=== PATIENT | male | born 1950 | race Caucasian/White ===

== ENCOUNTER 2022-06-17 14:50 | Inpatient (IN) | payer MEDICARE, BC ==
[~2022-06-17] VITALS: Ht 167.6 cm; Wt 54.0 kg
--- NOTE | 2022-06-17 14:55 | NUR ---
CASSY SÁNCHEZ FROM SNF FOR MEDICAL/PSYCH CLEARANCE, FOR NOTED AGRESSION TO STAFF. PLACED ON BED, AWAKE-ALERT, SCREAMING-AGITATED, BREATHING EVEN AND UNLABORED SATURATING AT 96%RA
[2022-06-17] MEDS ORDERED: OLANZAPINE 10 MG VIAL IM ONE ×4 (15:00→21:00)
--- NOTE | 2022-06-17 16:10 | NUR ---
BLOOD DRAWN AND URINE SAMPLE SENT TO LAB
[2022-06-17] MEDS ORDERED: GUAN1TAB PO ×2 (16:15)
[2022-06-17] MEDS ORDERED: TAMS-12 PO (16:15)
[2022-06-17] MEDS ORDERED: LEVE500T9 PO (16:15)
[2022-06-17] MEDS ORDERED: DIVA-78 PO (16:15)
[2022-06-17] MEDS ORDERED: QUET25TA PO ×2 (16:15)
[2022-06-17] MEDS ORDERED: CLON0.5T4 PO (16:15)
[2022-06-17] MEDS ORDERED: INSU100V11 SQ (16:15)
[2022-06-17] MEDS ORDERED: FOLI0.4T6 PO (16:15)
[2022-06-17] MEDS ORDERED: THIA100T70 PO (16:15)
[2022-06-17] MEDS ORDERED: METF-441 PO (16:15)
[2022-06-17] MEDS ORDERED: FINA5TAB11 PO (16:15)
[2022-06-17] MEDS ORDERED: MELA5TAB PO (16:15)
[2022-06-17] MEDS ORDERED: TYL2T PO (16:15)
[2022-06-17] MEDS ORDERED: MULT-447 PO (16:15)
[2022-06-17] MEDS ORDERED: GLUC1KIT IM (16:15)
[2022-06-17] MEDS ORDERED: ACET-868 PO (16:15)
[2022-06-17] MEDS ORDERED: CALC1TAB30 PO (16:15)
[2022-06-17] MEDS ORDERED: INSU100V7 SQ (16:15)
[2022-06-17 16:25] LABS: BASOPHILS % (AUTO) 0.5 % (0.0-2.0); EOSINOPHILS % (AUTO) 8.2 % (0.0-6.0); HEMATOCRIT 37 % (39-51); HEMOGLOBIN 12.3 g/dL (13.5-17.5); LYMPHOCYTES # (AUTO) 1.7 K/uL (0.8-4.8); LYMPHOCYTES % (AUTO) 22.1 % (20.0-44.0); MEAN CORPUSCULAR HGB CONC 33 g/dl (31.0-36.0); MEAN CORPUSCULAR VOLUME 99 fL (80-96); MONOCYTES # (AUTO) 0.7 K/uL (0.1-1.30); MONOCYTES % (AUTO) 9.5 % (2.0-12.0); NEUTROPHILS # (AUTO) 4.6 K/uL (1.8-8.9); NEUTROPHILS % (AUTO) 59.7 % (43.0-81.0); PLATELET COUNT (AUTO) 371 K/uL (150-450); RED BLOOD CELL COUNT(AUTO) 3.77 MIL/uL (4.5-6.0); WHITE BLOOD COUNT (AUTO) 7.7 K/uL (4.3-11.0)
--- NOTE | 2022-06-17 16:26 | NUR ---
SWAB FOR COVID19 SENT TO LAB
[2022-06-17 16:42] LABS: ALANINE AMINOTRANSFERASE 14 U/L (12-78); ALBUMIN 3.2 g/dL (3.4-5.0); ALCOHOL, BLOOD < 3 mg/dL (0-0); ALKALINE PHOSPHATASE 69 U/L (46-116); ASPARTATE AMINOTRANSFERASE 13 U/L (15-37); BILIRUBIN,DIRECT 0.1 mg/dL (0.0-0.2); BILIRUBIN,TOTAL 0.3 mg/dL (0.2-1.0); CALCIUM, SERUM 9.3 mg/dL (8.5-10.1); CARBON DIOXIDE 27 mmol/L (21-32); CHLORIDE 103 mmol/L (98-107); CREATININE 1.4 mg/dL (0.6-1.3); GLUCOSE 275 mg/dL (74-106); POTASSIUM 4.1 mmol/L (3.5-5.1); SODIUM SERUM 141 mmol/L (136-145); TOTAL PROTEIN, SERUM 7.1 g/dL (6.4-8.2); UREA NITROGEN, BLOOD 19 mg/dL (7-18)
[2022-06-17 16:59] LABS: ACETAMINOPHEN < 2 ug/ml (10-30)
--- NOTE | 2022-06-17 17:55 | NUR ---
URINE SAMPLE SENT TO LAB
[2022-06-17] MEDS ORDERED: LEVOFLOXACIN 750 MG /D5W 150ML 150 ML IV ONE ×2 (18:30→19:12)
--- NOTE | 2022-06-17 18:50 | NUR ---
ROOM 110.
[2022-06-17] MEDS ORDERED: DEXTROSE 50%-WATER 50 ML DISP.SYRIN IV PRN (19:30)
[2022-06-17] MEDS ORDERED: ACETAMINOPHEN 325 MG TABLET PO PRN (19:30)
[2022-06-17] MEDS ORDERED: ONDANSETRON HCL/PF 4 MG/2 ML VIAL IVP PRN (19:30)
[2022-06-17] MEDS ORDERED: MORPHINE SULFATE INJ 2 MG/ML DISP.SYRIN IV PRN (19:30)
[2022-06-17] MEDS ORDERED: IV NS 0.9% 1,000 ML BAG IV ONE (19:30)
[2022-06-17 20:03] LABS: BILIRUBIN,URINE NEGATIVE (NEGATIVE); COLOR,URINE YELLOW (YELLOW); LEUKOCYTE ESTERASE ,URINE SMALL (NEGATIVE); NITRITE, URINE NEGATIVE (NEGATIVE); PH,URINE 6.5 (5.0-8.0); PROTEIN,URINE 30 mg/dl (NEGATIVE); UGLUCOSE 100 MG/DL mg/dL (NEGATIVE); UROBILINOGEN,URINE 0.2 EU/dL (0.2)
--- NOTE | 2022-06-17 20:15 | NUR ---
REPORT GIVEN TO JENNIFER JACOBO ROOM 328-2 FOR ANDREW
[2022-06-17 20:46] LABS: WBC,URINE 21-50 /HPF (0-3)
[2022-06-17 20:47] LABS: BACTERIA,URINE 2+ /HPF (None Seen); SQUAMOUS EPITHELIAL CELL,UR 0-2 /HPF (None Seen)
[2022-06-17 21:00] VITALS: BP 113/70
[2022-06-17 21:51] LABS: CREATINE KINASE, TOTAL 159 U/L (39-308)
[2022-06-17 22:00] VITALS: BP 113/70
[2022-06-17] MEDS ORDERED: Medication Not On Formulary EA (Melatonin 5 MG) PO SCH (22:00)
--- NOTE | 2022-06-17 22:00 | NUR ---
FROM THE ER FROM SNF ADMITTED FOR MEDICAL CLEARANCE TO BE ADMITTED TO [facility] UNIT DX UTI 1 DOSE LEVAQUIN HAS BEEN GIVEN IN THE ER PATIENT IS AGITATED / YELLING /HITTING /GETTING OUT OF THE BED NO COMPREHENTION WHEN HE IS SPOKEN TO SPOKE TO MD ROGERS AND MADE HIM AWARE OF THE BEHAVIOR OF THE PATIENT HE ORDERED 1ST TRY BENADRYL 50 MG IV Q 8 HOURS PRN ...IF INEFFECTIVE TRY 2ND TRY HALDOL 5M IV Q6H PRN ...IF INEFFECTIVE TRY 3RD TRY ATIVAN 1 MG IV Q 6HOURS ...ONLY USE LAST FOR AGITATION PATIENT WAS ABLE TO GET OOB X3 BEDALARM SOUNDING EACH TIME PUTTING HIM BACK TO BED HE STARTED HITTING AND YELLING WATER GIVEN ASPIRATION PRECAUTION SWALLOW WELL HOB ELEVATED 'OUCH YOUR HURTING ME" YELLS THIS OUT WHEN NOT EVEN BEING TOUCHED!
[2022-06-17 22:03] LABS: SERUM AMMONIA 36 umol/L (11-32)
[2022-06-17] MEDS: IV NS 0.9% 1,000 ML IV SCH (22:21)
[2022-06-17] MEDS: INSULIN GLARGINE, 100 UNIT/ML CARTRIDGE SQ SCH (22:25)
[2022-06-17] MEDS: HEPARIN SODIUM, PORCINE 5000 UNITS/1 ML VIAL SQ SCH (22:26)
[2022-06-17] MEDS: FINASTERIDE (5 MG) 5 MG TABLET PO SCH (22:29)
[2022-06-17] MEDS: TAMSULOSIN 0.4 MG CAP.SR.24H PO SCH (22:29)
[2022-06-17] MEDS: DIVALPROEX SODIUM 500 MG TABLET.DR PO SCH (22:30)
[2022-06-17] MEDS: QUETIAPINE FUMARATE 25 MG TABLET PO SCH (22:30)
[2022-06-17] MEDS: BLOOD SUGAR DIAGNOSTIC 1 EACH STRIP VI SCH (22:31)
[2022-06-17] MEDS ORDERED: LORAZEPAM INJ 2 MG/ML VIAL IV PRN (23:30)
[2022-06-17] MEDS: diphenhydrAMINE HCL 50 MG/ML VIAL IV PRN (23:49)
--- NOTE | 2022-06-18 04:09 | NUR ---
CLOSING NOTES: ADMITTED FROM THE ER 06/17 @ 22;15 ALERT TO SELF / UTI / AMS / AGITATED /YELLING " YOUR HURTING ME" SAYS THIS EVEN IF NO ONE IS TOUCHING HIM HE WAS RESTLESS AND ACTUALLY CLIMBING OUT OF THE BED X3 WHEN I WAS ABLE TO GET A SITTER AND SPOKE TO MD FATIMA AND HE SAID TO 1ST TRY BENADRLY 50 MG IV IF NOT EFFECTIVE 2ND TRY [id number] IV IF NOT EFFECTIVE 3RD TRY ATIVAN 1 MG IV 9GIVE ONLY IF THE 1ST AND 2ND AREN'T EFFECTIVE TO LOWER HIS AGITATION AND CALM HIM DOWN SITTER AT THE BEDSIDE SWALLOWS W/O PROBLEMS BUT WILL NEED TO OFFER FLUIDS AND ASSIST HIM HE HAS A HISTORY OF BPH AND ARRIVED WITH INDWELLING JACOBO FROM THE SNF CTR DX. UTI AND AMS. HE IS EASILY AGITATED / SPEAKING MEAN TO THE NURSES /WITH OPEN HAND HIT THE NURSE / ABLE TO MOVE ABOUT IN THE BED INDEPENDENTLY SKIN INTACT
[2022-06-18] MEDS: BLOOD SUGAR DIAGNOSTIC 1 EACH STRIP VI SCH ×4 (06:10→21:10)
[2022-06-18 06:33] LABS: BASOPHILS % (AUTO) 0.4 % (0.0-2.0); EOSINOPHILS % (AUTO) 10.3 % (0.0-6.0); HEMATOCRIT 35 % (39-51); HEMOGLOBIN 11.6 g/dL (13.5-17.5); LYMPHOCYTES # (AUTO) 1.9 K/uL (0.8-4.8); LYMPHOCYTES % (AUTO) 25.6 % (20.0-44.0); MEAN CORPUSCULAR HGB CONC 34 g/dl (31.0-36.0); MEAN CORPUSCULAR VOLUME 99 fL (80-96); MONOCYTES # (AUTO) 0.7 K/uL (0.1-1.30); MONOCYTES % (AUTO) 9.4 % (2.0-12.0); NEUTROPHILS # (AUTO) 4.1 K/uL (1.8-8.9); NEUTROPHILS % (AUTO) 54.3 % (43.0-81.0); PLATELET COUNT (AUTO) 339 K/uL (150-450); RED BLOOD CELL COUNT(AUTO) 3.49 MIL/uL (4.5-6.0); WHITE BLOOD COUNT (AUTO) 7.5 K/uL (4.3-11.0)
[2022-06-18 06:55] LABS: ALANINE AMINOTRANSFERASE 10 U/L (12-78); ALBUMIN 2.9 g/dL (3.4-5.0); ALKALINE PHOSPHATASE 57 U/L (46-116); ASPARTATE AMINOTRANSFERASE 13 U/L (15-37); BILIRUBIN,TOTAL 0.5 mg/dL (0.2-1.0); CALCIUM, SERUM 8.4 mg/dL (8.5-10.1); CARBON DIOXIDE 28 mmol/L (21-32); CHLORIDE 110 mmol/L (98-107); GLUCOSE 105 mg/dL (74-106); MAGNESIUM 1.9 mg/dL (1.8-2.4); POTASSIUM 3.8 mmol/L (3.5-5.1); SODIUM SERUM 146 mmol/L (136-145); TOTAL PROTEIN, SERUM 6.3 g/dL (6.4-8.2); UREA NITROGEN, BLOOD 17 mg/dL (7-18)
--- NOTE | 2022-06-18 07:45 | NUR ---
DONNELL LOPEZ NOTES RECEIVED PATIENT IN BED CALM, WITH A SITTER, PATIENT IS AOX1-2, CONFUSED, VERBAL BUT PHRASES ARE INCOHERENT. PATIENT IS ON ROOM AIR SATURATING AT 99%, NO S/SX OF RESPIRATORY DISTRESS NOTED, PATIENT DENIES PAIN, PATIENT CAME WITH A JACOBO FROM HIS SNF, INTACT, PATENT, DRAINING PALE YELLOW URINE VIA GRAVITY. PATIENT HAS RAC G#20 DRAINING NS AT 70 ML/HR AND LH G#20 SL, PATENT, FLUSHING WELL. SAFETY PRECAUTIONS IN PLACE: BED AT LOWEST POSITION, BED ALARMS ON, SIDE RAILS UP X3, TRAY TABLE AND CALL LIGHT WITHIN REACH. WILL CONTINUE TO MONITOR DURING MY SHIFT. Addendum: 06/18/22 at 2017 by LIS JOYCE RN DONNELL MS OPENING NOTES
[2022-06-18 08:00] VITALS: BP 103/62
[2022-06-18] MEDS ORDERED: clonazePAM 0.5 MG TABLET PO SCH (09:00)
[2022-06-18] MEDS ORDERED: GUANFACINE HCL 1 MG TABLET PO SCH ×2 (09:00→18:00)
--- NOTE | 2022-06-18 09:40 | NUR ---
RN NOTES PATIENT WAS SEEN OFF HIS BED WITHOUT HIS SITTER ON THE FLOOR. NO INJURIES NOTED AND NO COMPLAINS NOTED. CHARGE NURSE DAVIN ASKED FOR ACUTE MEDICAL RESTRAINTS BE ORDERED FROM [facility] FOR SAFETY. PATIENT ALSO MANAGED TO ACCIDENTALLY REMOVE HIS RAC IV IN THE PROCESS. SOFT MEDICAL RESTRAINTS APPLIED ON BOTH WRISTS, WILL CONTINUE TO MONITOR COMFORT AND PROVIDE SAFETY.
[2022-06-18] MEDS: CEFTRIAXONE 1 G in IV D5W 50 ML IV SCH (10:25)
[2022-06-18] MEDS: MULTIVIT W/MINERALS 1 TAB TABLET PO SCH (10:29)
[2022-06-18] MEDS: DOCUSATE SODIUM LIQ 100 MG/10 ML UDC PO SCH ×2 (10:29→17:16)
[2022-06-18] MEDS: DIVALPROEX SODIUM 500 MG TABLET.DR PO SCH ×3 (10:29→20:59)
[2022-06-18] MEDS: CALCIUM CARB 250MG /VITAMIN D 1 UDTAB PO SCH (10:29)
[2022-06-18] MEDS: THIAMINE HCL 100 MG TABLET PO SCH (10:29)
[2022-06-18] MEDS: QUETIAPINE FUMARATE 25 MG TABLET PO SCH (10:30)
[2022-06-18] MEDS: POLYETHYLENE GLYCOL 3350 17 GM POWD.PACK PO SCH (10:30)
[2022-06-18] MEDS: FOLIC ACID 1 MG TABLET PO SCH (10:30)
[2022-06-18] MEDS: LEVETIRACETAM (250 MG) 250 MG TABLET PO SCH (10:30)
[2022-06-18] MEDS: HEPARIN SODIUM, PORCINE 5000 UNITS/1 ML VIAL SQ SCH ×2 (10:33→20:59)
--- NOTE | 2022-06-18 11:31 | NUR ---
RN NOTES PATIENT WAS ABLE TO SUCCESSFULLY REMOVE HIS RIGHT ARM RESTRAINT AND PULLED HIS LEFT ARM IV LINE. BLEEDING HAS BEEN STOPPED WITH PRESSURE DRESSING. WILL REINSERT A NEW ONE. PATIENT IS AGITATED. WILL GIVE BENADRYL ORDERED.
[2022-06-18] MEDS: diphenhydrAMINE HCL 50 MG/ML VIAL IV PRN ×2 (11:38→21:00)
[2022-06-18] MEDS: INSULIN REGULAR, HUMAN 100 UNIT/ML 3 ML VIAL SQ PRN (11:44)
[2022-06-18] MEDS: IV NS 0.9% 1,000 ML IV SCH (12:44)
[2022-06-18] MEDS: HALOPERIDOL LACTATE INJ 5 MG/ML VIAL IV PRN (12:46)
[2022-06-18] MEDS ORDERED: OLANZAPINE 5 MG TABLET PO PRN (14:00)
[2022-06-18 16:00] VITALS: BP 128/72
[2022-06-18] MEDS: OLANZAPINE 5 MG TABLET PO SCH (17:16)
--- NOTE | 2022-06-18 17:30 | NUR ---
RN NOTES DVT PUMP IN PLACE
--- NOTE | 2022-06-18 17:50 | NUR ---
RN NOTES Guanfacine Hcl 1 mg IS NOT AVAILABLE IN THE PHARMACY FOR HTN. INFORMED PHARMACY THAT PT IS FROM A SNF. CIGARETTE SELLER MENTIONED SHE WILL CONTACT YOVANY WEBSTER TO DC.
--- NOTE | 2022-06-18 18:45 | NUR ---
RN MS CLOSING NOTES PATIENT IN BED CALM, PATIENT IS AOX1-2, CONFUSED, VERBAL BUT PHRASES ARE INCOHERENT. PATIENT IS ON ROOM AIR SATURATING AT 99%, NO S/SX OF RESPIRATORY DISTRESS NOTED, PATIENT DENIES PAIN, PATIENT STILL WITH JACOBO CATHETER WHICH DRAINED ABOUT 1200 ML OF URINE. IV ACCESS IS NOW ON RFA G#20 DRAINING NS AT 70 ML/HR, PATENT, FLUSHING WELL. PATIENT STILL HAS SOFT MEDICAL RESTRAINTS ON BOTH WRISTS BECAUSE HE IS TRYING TO PULL HIS IVS OUT. CHECKED FOR SAFETY, PERFUSION AND COMFORT EVERY 2 HOURS. NO INJURIES NOTED. SAFETY PRECAUTIONS MAINTAINED: BED AT LOWEST POSITION, BED ALARMS ON, SIDE RAILS UP X3, TRAY TABLE AND CALL LIGHT WITHIN REACH. WILL ENDORSE TO THE DIRECTOR ELECTRICAL ENGINEERING NURSE.
--- NOTE | 2022-06-18 20:16 | NUR ---
OPENING NOTES: ALERT AND ORIENTATED X1 TO SELF . HE TALKS INCOHERENTLY. [facility] CONTACT. FED HIM HIS DINNES ASOIRATION PRECAUTION. DINNER TAKEN 100% JACOBO DRAINAGE CLEAR YELLOW RIGHT ARM IV SITE INTACT
--- NOTE | 2022-06-18 20:17 | NUR ---
DONNELL MS OPENING NOTES Addendum: 06/18/22 at 2018 by LIS JOYCE RN DISREGARD
[2022-06-18] MEDS: INSULIN GLARGINE, 100 UNIT/ML CARTRIDGE SQ SCH (21:16)
[2022-06-18] MEDS: *INSULIN REGULAR(HUMULIN R)HUM 100 UNIT/ML VIAL SQ PRN (21:18)
[2022-06-18] MEDS: TAMSULOSIN 0.4 MG CAP.SR.24H PO SCH (21:27)
[2022-06-18] MEDS: FINASTERIDE (5 MG) 5 MG TABLET PO SCH (21:28)
[2022-06-19] MEDS: diphenhydrAMINE HCL 50 MG/ML VIAL IV PRN (05:07)
--- NOTE | 2022-06-19 05:12 | NUR ---
CLOSING NOTES ALERORIENTATED X0 ENJOYS WHEN NURSE IN THE ROOM WILL TALK INCOHERENTLY BUT ENJOY THE COMPANY WHEN NO ONE IS IN THE ROOM HE IS RESTLESS IN THE BED AND TALKING CONTINIOUS AND REMOVING HIS UNDER PSAD AND COVERS AND THROWING THEM ON TO THE FLOOR \AMBIKA WRIST RESTRAINTS ON REMOVED WHEN IM IN THE ROOM HE MAKE FREQ ATTEMPT TO GET OOB AND WHEN PLACED BACK DOWN INTO THE BED HITS THE NURSE HE IS ABLE TO GET HIMSELF OUT OF THE RESTRAINT AND LEGS OVER THE BED FREQ BED CHECKS ARE BEING MADE TO KEEP HIM SAFE FROM FALLING BENADRYL 50 MG GIVEN AT 2100 AND 0500 FOR RESTLESSNESS AND AGITATION WILL YELL OUT AT TIMES
[2022-06-19] MEDS: BLOOD SUGAR DIAGNOSTIC 1 EACH STRIP VI SCH ×4 (05:25→21:34)
[2022-06-19 06:58] LABS: CALCIUM, SERUM 9.3 mg/dL (8.5-10.1); CARBON DIOXIDE 28 mmol/L (21-32); CHLORIDE 105 mmol/L (98-107); GLUCOSE 73 mg/dL (74-106); POTASSIUM 3.4 mmol/L (3.5-5.1); SODIUM SERUM 143 mmol/L (136-145); UREA NITROGEN, BLOOD 13 mg/dL (7-18)
--- NOTE | 2022-06-19 07:09 | NUR ---
MS RN OPENING NOTES RECEIVED PATIENT AWAKE IN BED, RESTING ON ROOM AIR, NO S/S OF RESPIRATORY DISTRESS. A/Ox1, RESPONDS TO VERBAL AND TACTILE STIMULI. IV ACCESS R UPPER ARM #20 SL. INTACT AND PATENT, NO S/S OF INFILTRATION. BILATERAL SOFT WRIST RESTRAINTS IN PLACE, SKIN AND CIRCULATION INTACT. FC IN PLACE DRAINING YELLOW URINE. SAFETY MEASURES IN PLACE: BED LOCKED AND IN LOWEST POSITION, SIDE RAILS UP x3, BED ALARM ON, HOB ELEVATED, AND CALL LIGHT WITHIN REACH. WILL CONTINUE TO MONITOR.
[2022-06-19 07:10] LABS: BASOPHILS % (AUTO) 0.3 % (0.0-2.0); EOSINOPHILS % (AUTO) 7.5 % (0.0-6.0); HEMATOCRIT 37 % (39-51); HEMOGLOBIN 12.2 g/dL (13.5-17.5); LYMPHOCYTES # (AUTO) 1.6 K/uL (0.8-4.8); LYMPHOCYTES % (AUTO) 20.9 % (20.0-44.0); MEAN CORPUSCULAR HGB CONC 33 g/dl (31.0-36.0); MEAN CORPUSCULAR VOLUME 99 fL (80-96); MONOCYTES # (AUTO) 0.7 K/uL (0.1-1.30); MONOCYTES % (AUTO) 9.3 % (2.0-12.0); NEUTROPHILS # (AUTO) 4.7 K/uL (1.8-8.9); PLATELET COUNT (AUTO) 393 K/uL (150-450); RED BLOOD CELL COUNT(AUTO) 3.71 MIL/uL (4.5-6.0); WHITE BLOOD COUNT (AUTO) 7.6 K/uL (4.3-11.0)
[2022-06-19 08:00] VITALS: BP 129/72
[2022-06-19] MEDS: DIVALPROEX SODIUM 500 MG TABLET.DR PO SCH ×3 (08:06→21:28)
[2022-06-19] MEDS: clonazePAM 0.5 MG TABLET PO SCH ×2 (08:39→16:44)
[2022-06-19] MEDS: POLYETHYLENE GLYCOL 3350 17 GM POWD.PACK PO SCH (08:42)
[2022-06-19] MEDS: OLANZAPINE 5 MG TABLET PO SCH ×2 (08:42→16:44)
[2022-06-19] MEDS: DOCUSATE SODIUM LIQ 100 MG/10 ML UDC PO SCH ×2 (08:42→16:44)
[2022-06-19] MEDS: CALCIUM CARB 250MG /VITAMIN D 1 UDTAB PO SCH (08:42)
[2022-06-19] MEDS: MULTIVIT W/MINERALS 1 TAB TABLET PO SCH (08:42)
[2022-06-19] MEDS: FOLIC ACID 1 MG TABLET PO SCH (08:43)
[2022-06-19] MEDS: THIAMINE HCL 100 MG TABLET PO SCH (08:43)
[2022-06-19] MEDS: CEFTRIAXONE 1 G in IV D5W 50 ML IV SCH (08:43)
[2022-06-19] MEDS: LEVETIRACETAM (250 MG) 250 MG TABLET PO SCH (08:43)
[2022-06-19] MEDS: HEPARIN SODIUM, PORCINE 5000 UNITS/1 ML VIAL SQ SCH ×2 (08:45→21:29)
[2022-06-19] MEDS: INSULIN REGULAR, HUMAN 100 UNIT/ML 3 ML VIAL SQ PRN (11:51)
[2022-06-19] MEDS ORDERED: POTASSIUM CHLORIDE 20 MEQ TAB.PRT.SR PO SCH (13:00)
--- NOTE | 2022-06-19 17:10 | NUR ---
RN NOTES RECEIVED CALL FROM LAB, PATIENT HAS POSITIVE FOR MRSA STAPH AUREUS.
--- NOTE | 2022-06-19 18:40 | NUR ---
MS RN CLOSING NOTES PATIENT AWAKE IN BED, RESTING STABLE ON ROOM AIR, NO S/S OF RESPIRATORY DISTRESS. A/Ox1, RESPONDS TO VERBAL AND TACTILE STIMULI. IV ACCESS R UPPER ARM #20 SL. INTACT AND PATENT, NO S/S OF INFILTRATION. BILATERAL SOFT WRIST RESTRAINTS IN PLACE, SKIN AND CIRCULATION INTACT. FC IN PLACE DRAINING 1900 CC DURING SHIFT. ALL PRESCRIBED MEDICATION ADMINISTERED. SAFETY MEASURES MAINTAINED: BED LOCKED AND IN LOWEST POSITION, SIDE RAILS UP x3, BED ALARM ON, HOB ELEVATED, AND CALL LIGHT WITHIN REACH. WILL ENDORSE TO NEXT SHIFT ANY ANDREW.
--- NOTE | 2022-06-19 19:55 | NUR ---
MS RN NOTES RECEIVED ON BED CONFUSED,ON BILATERAL SOFT RESTRAINT,FALL RISK,BED ON LOWEST POSITION AND LOCKED,DVT PUMP IN USED FOR DVT PROPHYLAXIS,WILL CONTINUE TO MONITOR STATUS.
[2022-06-19 20:00] VITALS: BP_SYST 123; BP_DIAS 72; BP_DIAS 74
[2022-06-19] MEDS: MUPIROCIN OINT 2% 22 GM TUBE NS SCH (21:27)
[2022-06-19] MEDS: NITROFURANTOIN/MONOHYDRATE MACROCRYSTALS 100 MG CAPSULE PO SCH (21:28)
[2022-06-19] MEDS: FINASTERIDE (5 MG) 5 MG TABLET PO SCH (21:33)
[2022-06-19] MEDS: TAMSULOSIN 0.4 MG CAP.SR.24H PO SCH (21:33)
[2022-06-19] MEDS: INSULIN GLARGINE, 100 UNIT/ML CARTRIDGE SQ SCH (21:56)
[2022-06-19] MEDS: *INSULIN REGULAR(HUMULIN R)HUM 100 UNIT/ML VIAL SQ PRN (21:59)
[2022-06-19] MEDS ORDERED: OLANZAPINE 5 MG TABLET PO SCH (22:00)
--- NOTE | 2022-06-19 22:00 | NUR ---
MS RN NOTES ACCU-CHECK BLOOD SUGAR CHECK 259,COVERED WITH HUMULIN R 6 UNITS,ALONG WITH LANTUS 15 UNITS SCHEDULED,SNACKS GIVEN.
[2022-06-20] MEDS: diphenhydrAMINE HCL 50 MG/ML VIAL IV PRN (01:40)
--- NOTE | 2022-06-20 01:40 | NUR ---
MS RN NOTES AWAKE,VERY RESTLESS ON BED,TRYING TO PULL OUT RESTRAINTS.BENADRYL 50MG IV GIVEN ORDERED,FIRST TO BE GIVEN WHEN PATIENT IS AGITATED
[2022-06-20] MEDS: BLOOD SUGAR DIAGNOSTIC 1 EACH STRIP VI SCH ×4 (05:21→22:21)
--- NOTE | 2022-06-20 05:30 | NUR ---
MS RN NOTES ACCU-CHECK BLOOD SUGAR CHECK 87,NO INSULIN COVERAGE,GIVEN JELLO BUT HE SPIT IT.
[2022-06-20] MEDS: HALOPERIDOL LACTATE INJ 5 MG/ML VIAL IV PRN (06:35)
--- NOTE | 2022-06-20 06:35 | NUR ---
MS RN NOTES VERY RESTLESS,AGITATED,TRIED TO SPIT WITH STAFF,TRYING TO GET OUT OF BED.WILL MEDICATE WITH HALDOL 5MG IV SECOND CHOICE TO CALM HIM DOWN.PUT ON TELE WITH SR -96 BEFORE ADMINISTERING MEDICATION.
--- NOTE | 2022-06-20 06:35 | NUR ---
MS RN NOTES ADMINISTERED HALDOL 5MG IVP,GIVEN SLOWLY OVER ONE MINUTE.TELE READING POST ADMINISTRATION WAS ST 113.
--- NOTE | 2022-06-20 06:51 | NUR ---
MS RN NOTES ON BED STILL SCREAMING ON AND OFF,BILATERAL SOFT RESTRAINTS IN USED ON BOTH WRIST WITH ORDER,JACOBO CATH IN PLACE DRAINS 900ML OUTPUT.FALL RISK,BED ON LOWEST POSITION AND LOCKED,BED ALARM.WILL ENDORSE TO DAY NURSE ASSIGNED FOR CLOSE MONITORING.
[2022-06-20 07:02] LABS: CALCIUM, SERUM 9.1 mg/dL (8.5-10.1); POTASSIUM 3.4 mmol/L (3.5-5.1)
--- NOTE | 2022-06-20 07:35 | NUR ---
ms rn received on bed,sleeping, not in any form of distress, bilateral soft wrist restaint on for safety, haldol was given at 5 am per warehouse worker 2nd shift rn, very confused and combative no distress noted, will monitor patient for comfort.
[2022-06-20 08:00] VITALS: BP 130/81
[2022-06-20] MEDS: LEVETIRACETAM (250 MG) 250 MG TABLET PO SCH (08:54)
[2022-06-20] MEDS: OLANZAPINE 5 MG TABLET PO SCH (08:54)
[2022-06-20] MEDS: DOCUSATE SODIUM LIQ 100 MG/10 ML UDC PO SCH ×2 (08:55→18:09)
[2022-06-20] MEDS: POLYETHYLENE GLYCOL 3350 17 GM POWD.PACK PO SCH (08:55)
[2022-06-20] MEDS: NITROFURANTOIN/MONOHYDRATE MACROCRYSTALS 100 MG CAPSULE PO SCH ×2 (08:55→21:58)
[2022-06-20] MEDS: FOLIC ACID 1 MG TABLET PO SCH (08:55)
[2022-06-20] MEDS: MULTIVIT W/MINERALS 1 TAB TABLET PO SCH (08:55)
[2022-06-20] MEDS: CALCIUM CARB 250MG /VITAMIN D 1 UDTAB PO SCH (08:55)
[2022-06-20] MEDS: DIVALPROEX SODIUM 500 MG TABLET.DR PO SCH ×3 (08:55→21:58)
[2022-06-20] MEDS: clonazePAM 0.5 MG TABLET PO SCH (08:55)
[2022-06-20] MEDS: THIAMINE HCL 100 MG TABLET PO SCH (08:55)
[2022-06-20] MEDS: HEPARIN SODIUM, PORCINE 5000 UNITS/1 ML VIAL SQ SCH ×2 (08:56→22:00)
--- NOTE | 2022-06-20 09:00 | NUR ---
ms rn was seen by dr. katz w/ orders made and carried out.
[2022-06-20] MEDS: MUPIROCIN OINT 2% 22 GM TUBE NS SCH ×2 (09:15→22:02)
[2022-06-20] MEDS ORDERED: POLY17PO29 PO (11:51)
[2022-06-20] MEDS ORDERED: MUPI22OI7 NS (11:51)
[2022-06-20] MEDS ORDERED: DIVA500T2 PO (11:51)
[2022-06-20] MEDS ORDERED: DOCU50LI PO (11:51)
[2022-06-20] MEDS ORDERED: Olanzapine PO (11:51)
[2022-06-20] MEDS ORDERED: NITR100C15 PO (11:51)
[2022-06-20] MEDS ORDERED: POTASSIUM CHLORIDE 20 MEQ TAB.PRT.SR PO ONE (13:00)
[2022-06-20] MEDS: INSULIN REGULAR, HUMAN 100 UNIT/ML 3 ML VIAL SQ PRN ×3 (14:30→22:11)
[2022-06-20 16:00] VITALS: BP 122/98
[2022-06-20] MEDS ORDERED: OLANZAPINE 5 MG TABLET PO SCH ×2 (17:00→22:00)
--- NOTE | 2022-06-20 18:40 | NUR ---
ms rn on bed, will be discharge to [facility],all needs attended.
--- NOTE | 2022-06-20 19:43 | NUR ---
RN OPENING NOTES; RECEIVED PT IN BED SLEEPING BUT EASY TO AROUSED,AOX1 CONFUSED,OSMAR WELL ON RM AIR NO SIGN SOB/DISTRESS NOTED,IV ACCESS ON DEE DEE 20G SL,PATENT AND INTACT,SAFETY MEASURE INPLACE,CALL LIGHT WITHIN REACH,PT WAITING FOR DISCHARGE GOING TO [facility],WILL CONTINUE TO MONITOR.
[2022-06-20] MEDS: FINASTERIDE (5 MG) 5 MG TABLET PO SCH (21:58)
[2022-06-20] MEDS: TAMSULOSIN 0.4 MG CAP.SR.24H PO SCH (21:59)
[2022-06-20] MEDS: INSULIN GLARGINE, 100 UNIT/ML CARTRIDGE SQ SCH (22:12)
[2022-06-20 22:33] VITALS: BP 93/72
--- NOTE | 2022-06-20 23:15 | NUR ---
RN NOTES; PATIENT DISCHARGED GOING TO [facility],PT WAS STABLE, NO SOB/DISTRESS NOTED,IV LINE AND F/C WAS REMOVE NO BLEEDING NOTED, GIVE REPORT TO HANK CHARGE NURSE.
== END 2022-06-20 23:23 | DRG 682 ==
LOC: ER 15:14 → MED 20:00
PROVIDERS: ADMIT Internal Medicine; ATTEND Nurse Practitioner Acute Care
DX: N17.0 Acute kidney failure with tubular necrosis (principal); G93.41 Metabolic encephalopathy; N39.0 Urinary tract infection, site not specified; E44.0 Moderate protein-calorie malnutrition; E87.2 Acidosis; E72.20 Disorder of urea cycle metabolism, unspecified; E87.0 Hyperosmolality and hypernatremia; E86.0 Dehydration; E11.9 Type 2 diabetes mellitus without complications; Z20.822 Contact with and (suspected) exposure to COVID-19; E88.09 Other disorders of plasma-protein metabolism, not elsewhere classified; F03.90 Unspecified dementia, unspecified severity, without behavioral disturbance, psychotic disturbance, mood disturbance, and anxiety; D53.9 Nutritional anemia, unspecified; N40.0 Benign prostatic hyperplasia without lower urinary tract symptoms; R62.7 Adult failure to thrive; Z88.0 Allergy status to penicillin; Z79.4 Long term (current) use of insulin; Z79.899 Other long term (current) drug therapy; Z79.84 Long term (current) use of oral hypoglycemic drugs; F29 Unspecified psychosis not due to a substance or known physiological condition; B95.2 Enterococcus as the cause of diseases classified elsewhere; F20.9 Schizophrenia, unspecified; R41.0 Disorientation, unspecified
CPT/HCPCS: 36415; 71045-TC; 80048-TC; 80053-TC; 80076-TC; 80164-TC; 81001; 82140-TC; 82550-TC; 82962-TC; 83605-TC; 83735-TC; 84100-TC; 84484-TC; 85025-TC; 85730-TC; 87040-TC; 87081-TC; 87086-TC; 87186-TC; C9803; G0378; G0480; J0696; J1200; J1630; J1644; J1815; J1956; J3490; J7030; J7040; J7060

== ENCOUNTER 2022-06-20 23:49 | Inpatient (IN) | payer MEDICARE, BC ==
[~2022-06-20] VITALS: Ht 167.6 cm; Wt 54.0 kg
[~2022-06-20 23:49] MED LIST: ACET-868 PO; CALC1TAB30 PO; CLON0.5T4 PO; DIVA-78 PO; DIVA500T2 PO; DOCU50LI PO; FINA5TAB11 PO; FOLI0.4T6 PO; GLUC1KIT IM; GUAN1TAB PO; INSU100V11 SQ; INSU100V7 SQ; LEVE500T9 PO; MELA5TAB PO; METF-441 PO; MULT-447 PO; MUPI22OI7 NS; NITR100C15 PO; Olanzapine PO; POLY17PO29 PO; QUET25TA PO; TAMS-12 PO; THIA100T70 PO; TYL2T PO
[2022-06-21] MEDS ORDERED: DEXTROSE 50%-WATER 50 ML DISP.SYRIN IV PRN (00:30)
[2022-06-21] MEDS ORDERED: MAGNESIUM HYDROXIDE 30 ML UDC PO PRN (01:00)
[2022-06-21] MEDS ORDERED: BLOOD SUGAR DIAGNOSTIC 1 EACH STRIP IN ONE (01:00)
[2022-06-21] MEDS ORDERED: MAG HYDROX/AL HYDROX/SIMETH 30 ML UDC PO PRN (01:00)
[2022-06-21 01:20] VITALS: BP 115/68
[2022-06-21] MEDS ORDERED: Z GUARD REMEDY 4 OZ OINT TP PRN (02:00)
[2022-06-21 02:19] VITALS: BP 117/70
--- NOTE | 2022-06-21 02:39 | NUR ---
RN NOTES : ADMISSION NOTES: ADMITTED THIS 72Y/O MALE PATIENT ADMIT FROM [facility] , [facility] IN [place]. ADMITTED TO 5150 HOLD DTO,GD , PER HOLD PT.INCREASED AGITATION AND STRIKING OUT AT STAFF, UPON FACE TO FACE ASSESSMENT PATIENT IS A&O X1, CONFUSED, HYPERVERBAL, WORLD SALAD, EASILY AGITATED,DISORGNIZED,RESTLESS,PARANOID,UNCOOPERTIVE,RESTLESS ,DENIES SI /HI AT THIS TIME, PT. IS POOR HISTORIAN, POOR INSIGHT ,POOR JUDGEMENT , BOTH MD AWARE AND NOTIFIED OF THE ADMISSION, BELONGINGS CONTRABAND WERE DONE , PT. REFUSED SIGNS ADMISSION CONSENT PAPER DUE TO CONFUSED, REFUSED TO CHECK BLOOD SUGAR ,ENCOURAGED X3 BUT ,ENCOURAGED PT. TO TAKE SHOWER, PT. RIGHTS DISCUSS BY SERVICE MECHANIC , PROVIDE THE PT. WITH HANDBOOK, AND MEDICATIONS GUIDE, ENVIRONMENTAL SAFETY CHECK DONE, ENCOURAGED PT. VERBALIZED ANY FEELING CONCERN TO STAFF, ORIENT TO UNIT POLICY, NO ACUTE DISTRESS NOTED,VITAL SIGNS WNL ,DENIES ANY PAIN AT THIS TIME,WILL CONTINUE TO MONITOR FOR Q15 SAFETY AND BEHAVIOR.
--- NOTE | 2022-06-21 06:00 | NUR ---
RN NOTES: AT 0600 BLADDER SCAN DONE , NOTED URINE 350 ML , DENIES ANY PAIN DISCOMFORT AT THIS TIME , WILL CONTINUITY WITH CARE.
--- NOTE | 2022-06-21 06:00 | NUR ---
RN NOTES: AT 0600 BLADDER SCAN DONE , NOTED URINE 350 ML .
--- NOTE | 2022-06-21 06:50 | NUR ---
RN NOTES: CALLED AT THIS PHONE NUMBER [phone], BUT UNABLE TO LEFT MESSAGE DUE TO NOT PERSONAL NUMBER .
[2022-06-21] MEDS: BLOOD SUGAR DIAGNOSTIC 1 EACH STRIP VI SCH ×4 (07:41→22:05)
[2022-06-21 08:00] VITALS: BP 134/78
[2022-06-21] MEDS: POLYETHYLENE GLYCOL 3350 17 GM POWD.PACK PO SCH (08:40)
[2022-06-21] MEDS: NITROFURANTOIN/MONOHYDRATE MACROCRYSTALS 100 MG CAPSULE PO SCH ×2 (08:41→21:58)
[2022-06-21] MEDS: MULTIVIT W/MINERALS 1 TAB TABLET PO SCH (08:41)
[2022-06-21] MEDS: THIAMINE HCL 100 MG TABLET PO SCH (08:41)
[2022-06-21] MEDS: LEVETIRACETAM (250 MG) 250 MG TABLET PO SCH (08:41)
[2022-06-21] MEDS: CALCIUM CARB 250MG /VITAMIN D 1 UDTAB PO SCH (08:41)
[2022-06-21] MEDS: DOCUSATE SODIUM 100 MG CAPSULE PO SCH ×2 (08:41→16:23)
[2022-06-21] MEDS: FOLIC ACID 1 MG TABLET PO SCH (08:42)
[2022-06-21] MEDS ORDERED: HEPARIN SODIUM, PORCINE 5000 UNITS/1 ML VIAL SQ SCH (09:00)
[2022-06-21] MEDS: MUPIROCIN OINT 2% 22 GM TUBE NS SCH ×2 (09:03→21:57)
[2022-06-21] MEDS: INSULIN REGULAR, HUMAN 100 UNIT/ML 3 ML VIAL SQ PRN ×4 (09:05→22:32)
--- NOTE | 2022-06-21 09:17 | NUR ---
FILIPPO Initial Discharge Plan: Pt currently resides at [facility] located at [address] [place] [id number] . FILIPPO spoke with Danii green who stated pt is welcomed back when stable. FILIPPO will work with the MD, treatment team, and pt to help coordinate appropriate discharge.
--- NOTE | 2022-06-21 09:17 | NUR ---
FILIPPO Clinical Note: Pt placed on a 5150 hold for danger to others and GD. Pt was aggressive at his facility. Pt currently resides at [facility] located at [address] [place] [id number] . FILIPPO spoke with Danii green who stated pt is welcomed back when stable.
--- NOTE | 2022-06-21 09:18 | NUR ---
Treatment Plan: Pt refused to sign treatment plan. Pt was very confused and agitated.
[2022-06-21] MEDS: LORAZEPAM 0.5 MG TABLET PO PRN ×3 (09:54→19:35)
--- NOTE | 2022-06-21 09:59 | NUR ---
RN-NOTES PATIENT IN THE DAY ROOM UP IN THE CHEN CHAIR, NOTED TALKING TO SELF,BANGING THE CHEN CHAIR TABLE AND SCREAMING. REDIRECTED AND ATIVAN 0.5MG P.O GIVEN PRN ORDER. WILL CONT. MONITORING FOR SAFETY AND BEHAVIOR.
--- NOTE | 2022-06-21 10:44 | NUR ---
RN-NOTES RECEIVED T.O ORDER FROM YOVANY WEBSTER TO D/C HEPARIN SQ. NOTED AND CARRIED OUT.
--- NOTE | 2022-06-21 11:00 | NUR ---
RN-NOTES PATIENT IN THE DAY ROOM UP IN THE CHEN CHAIR,GUARDED,CALM NO ACUTE DISTRESS NOTED. PATIENT WAS ASSISTED BY TWO STAFF IN THE BATHROOM AND ABLE TO URINATE WITH NO DISCOMFORT NOTED. WILL CONT. MONITORING FOR SAFETY AND BEHAVIOR.
[2022-06-21] MEDS ORDERED: DIVALPROEX SODIUM 500 MG TABLET.DR PO SCH ×2 (15:00→22:00)
--- NOTE | 2022-06-21 15:57 | NUR ---
RN-NOTES RECEIVED T.O ORDER FROM DR. SANZ TO CHANGE DEPAKOTE DR 500MG BID AND DEPAKOTE DR 500 MG Q HS AND TO DEPAKOTE SPRINKLE 500MG P.O BID AND DEPAKOTE SPRINKLE 500MG P.O Q HS. NOTED AND CARRIED OUT.
[2022-06-21 16:00] VITALS: BP 139/90
[2022-06-21] MEDS: DIVALPROEX SODIUM 125 MG CAP.SPRINK PO SCH ×2 (16:23→22:00)
[2022-06-21] MEDS: OLANZAPINE 2.5 MG TABLET PO SCH (16:23)
--- NOTE | 2022-06-21 19:09 | NUR ---
RN-NOTES PATIENT IS COOPERATIVE WITH CARE ,ALERT X1 ,GUARDED, NO ACUTE DISTRESS NOTED.COMPLIANT WITH MEDICATIONS. NOTED WITH TALKING AND MUMBLING TO SELF. NEEDS FREQUENT REDIRECTIONS AND REORIENTATION .MODERATE ASSIST WITH ADL'S .ALL NEEDS ATTENDED AND ANTICIPATED. AMBULATORY WITH ASSIST TO THE BATHROOM, UNSTEADY GAIT. WILL CONT.MONITORING FOR SAFETY AND BEHAVIOR.WILL ENDORSE TO INCOMING SHIFT FOR CONTINUITY OF CAR
--- NOTE | 2022-06-21 19:30 | NUR ---
RECEIVED PATIENT IN CHEN CHAIR, AWAKE A/O X1. PATIENT HAS FLAT AFFECT, PASSIVE, DISORIENTED AND CONFUSED., NOTED TALKING TO SELF, BANGING THE CHEN CHAIR TABLE AND SCREAMING. UNABLE TO GIVE APPROPRIATE ANSWERS TO QUESTIONS. NEEDS FREQUENT REDIRECTION. REDIRECTED AND ATIVAN 0.5MG P.O GIVEN PRN ORDER. PT DENIES SUICIDE IDEATIONS AND HOMICIDAL IDEATIONS AT THIS TIME. PT CAN TRANSFER FROM BED TO CHAIR AND COMMODE WITH ASSISTANCE. PT HAS NO NEEDS AT THIS TIME. WILL CONTINUE TO MONITOR Q15 MIN WITH THE HELP OF STAFF TO MAINTAIN SAFETY.
[2022-06-21 20:48] VITALS: BP 129/87
[2022-06-21] MEDS: OLANZAPINE 5 MG TABLET PO SCH (21:00)
[2022-06-21] MEDS: TAMSULOSIN 0.4 MG CAP.SR.24H PO SCH (21:57)
[2022-06-21] MEDS: FINASTERIDE (5 MG) 5 MG TABLET PO SCH (21:58)
[2022-06-21] MEDS: TEMAZEPAM 7.5 MG CAPSULE PO PRN (21:59)
[2022-06-21] MEDS: INSULIN GLARGINE, 100 UNIT/ML CARTRIDGE SQ SCH (22:27)
[2022-06-22] MEDS: LORAZEPAM 0.5 MG TABLET PO PRN ×2 (01:46→10:46)
--- NOTE | 2022-06-22 06:12 | NUR ---
PT ASLEEP IN BED, BARELY SLEPT, NO S/S OR COMPLAINTS OF PAIN AT THIS TIME. PT IS DISPLAYING NO S/S OF APPARENT DISTRESS AT THIS TIME. ON ROOM AIR. PT BREATHING IS UNLABORED WITH EQUAL RISE AND FALL OF THE CHEST. PT IS ALERT AND ORIENTED X1. PASSIVE, WITHDRAWN, DISORGANIZED, DISORIENTED, CONFUSED. UNABLE TO GIVE APPROPRIATE ANSWERS TO QUESTIONS. TALKS TO HIMSELF, NEEDS FREQUENT REDIRECTION. PT DENIES SUICIDE IDEATIONS AND HOMICIDAL IDEATIONS AT THIS TIME. PT CAN TRANSFER FROM BED TO CHAIR WITH ASSISTANCE. DUE MEDS AND PRN MEDS GIVEN ORDERED AND NEEDED. PT HAS NO NEEDS AT THIS TIME. SAFETY PRECAUTIONS MAINTAINED. WILL ENDORSE TO NEXT NURSE ON DUTY FOR CONTINUITY OF CARE.
[2022-06-22 07:38] LABS: BASOPHILS % (AUTO) 0.5 % (0.0-2.0); EOSINOPHILS % (AUTO) 0.5 % (0.0-6.0); HEMATOCRIT 40 % (39-51); HEMOGLOBIN 13.3 g/dL (13.5-17.5); LYMPHOCYTES # (AUTO) 1.5 K/uL (0.8-4.8); MEAN CORPUSCULAR HGB CONC 33 g/dl (31.0-36.0); MEAN CORPUSCULAR VOLUME 99 fL (80-96); MONOCYTES # (AUTO) 0.9 K/uL (0.1-1.30); MONOCYTES % (AUTO) 9.4 % (2.0-12.0); NEUTROPHILS # (AUTO) 7.4 K/uL (1.8-8.9); NEUTROPHILS % (AUTO) 74.6 % (43.0-81.0); PLATELET COUNT (AUTO) 419 K/uL (150-450); RED BLOOD CELL COUNT(AUTO) 4.07 MIL/uL (4.5-6.0); WHITE BLOOD COUNT (AUTO) 9.9 K/uL (4.3-11.0)
[2022-06-22] MEDS: BLOOD SUGAR DIAGNOSTIC 1 EACH STRIP VI SCH ×4 (07:47→21:38)
[2022-06-22 08:00] VITALS: BP 124/65
[2022-06-22 08:28] LABS: CALCIUM, SERUM 9.2 mg/dL (8.5-10.1); CREATININE 1.1 mg/dL (0.6-1.3); POTASSIUM 4.1 mmol/L (3.5-5.1)
[2022-06-22] MEDS: THIAMINE HCL 100 MG TABLET PO SCH (08:30)
[2022-06-22] MEDS: MULTIVIT W/MINERALS 1 TAB TABLET PO SCH (08:30)
[2022-06-22] MEDS: POLYETHYLENE GLYCOL 3350 17 GM POWD.PACK PO SCH (08:30)
[2022-06-22] MEDS: LEVETIRACETAM (250 MG) 250 MG TABLET PO SCH (08:32)
[2022-06-22] MEDS: DOCUSATE SODIUM 100 MG CAPSULE PO SCH ×2 (08:32→17:18)
[2022-06-22] MEDS: CALCIUM CARB 250MG /VITAMIN D 1 UDTAB PO SCH (08:32)
[2022-06-22] MEDS: NITROFURANTOIN/MONOHYDRATE MACROCRYSTALS 100 MG CAPSULE PO SCH ×2 (08:32→21:17)
[2022-06-22] MEDS: FOLIC ACID 1 MG TABLET PO SCH (08:32)
[2022-06-22] MEDS: OLANZAPINE 2.5 MG TABLET PO SCH ×3 (09:25→17:18)
[2022-06-22] MEDS: MUPIROCIN OINT 2% 22 GM TUBE NS SCH ×2 (09:25→21:20)
[2022-06-22] MEDS: INSULIN REGULAR, HUMAN 100 UNIT/ML 3 ML VIAL SQ PRN ×3 (09:28→18:39)
[2022-06-22] MEDS: DIVALPROEX SODIUM 125 MG CAP.SPRINK PO SCH ×3 (09:39→21:17)
--- NOTE | 2022-06-22 10:46 | NUR ---
RN-NOTES PATIENT IN THE DAY ROOM UP IN THE CHEN CHAIR, NOTED TALKING TO SELF,BANGING THE CHEN CHAIR TABLE WITH BOTH HANDS ,SCREAMING AND YELLING. REDIRECTED AND ATIVAN 0.5MG P.O GIVEN PRN ORDER. WILL CONT. MONITORING FOR SAFETY AND BEHAVIOR.
--- NOTE | 2022-06-22 11:50 | NUR ---
RN-NOTES PATIENT IN THE DAY ROOM UP IN THE CHEN CHAIR CALM,TALKING TO SELF, NO ACUTE DISTRESS NOTED.
--- NOTE | 2022-06-22 12:24 | NUR ---
RN-NOTES PATIENT BS WAS 437 MG/DL,INSULATION POWER UNIT TENDER DARIN MADE AWARE WITH T.O ORDER TO GIVE THE SLIDING COVERAGE OF 15 UNITS REGULAR INSULIN.NOTED
[2022-06-22 16:00] VITALS: BP 130/99
--- NOTE | 2022-06-22 18:54 | NUR ---
NURSE NOTE: PT IS COOPERATIVE WITH CARE ,ALERT AND ORT X1 ,GUARDED, NO ACUTE DISTRESS NOTED. COMPLIANT WITH MEDICATIONS. NOTED WITH TALKING AND MUMBLING TO SELF. VERY NEEDY, NEEDS FREQUENT REDIRECTIONS AND REORIENTATION .MODERATE ASSIST WITH ADL'S .ALL NEEDS ATTENDED AND ANTICIPATED. AMBULATORY WITH ASSIST TO THE BATHROOM, UNSTEADY GAIT. WILL CONT. TO MONITOR FOR SAFETY AND BEHAVIOR.WILL ENDORSE TO INCOMING SHIFT FOR CONTINUITY OF CARE
[2022-06-22 20:45] VITALS: BP 155/98
[2022-06-22] MEDS: TAMSULOSIN 0.4 MG CAP.SR.24H PO SCH (21:16)
[2022-06-22] MEDS: FINASTERIDE (5 MG) 5 MG TABLET PO SCH (21:17)
[2022-06-22] MEDS: OLANZAPINE 5 MG TABLET PO SCH (21:17)
[2022-06-22] MEDS: INSULIN GLARGINE, 100 UNIT/ML CARTRIDGE SQ SCH (21:36)
[2022-06-22] MEDS: *INSULIN REGULAR(HUMULIN R)HUM 100 UNIT/ML VIAL SQ PRN (21:38)
--- NOTE | 2022-06-22 22:10 | NUR ---
[facility] RN NOTES ASSISTED PATIENT TO THE BATHROOM. PATIENT WAS ABLE TO URINATE WITHOUT ANY DIFFICULTY. GOOD PERICARE RENDERED.
[2022-06-22] MEDS: TEMAZEPAM 7.5 MG CAPSULE PO PRN (22:51)
[2022-06-23] MEDS: LORAZEPAM 0.5 MG TABLET PO PRN ×2 (03:18→20:27)
[2022-06-23] MEDS: BLOOD SUGAR DIAGNOSTIC 1 EACH STRIP VI SCH ×4 (07:30→21:35)
[2022-06-23 08:00] VITALS: BP 131/87
[2022-06-23] MEDS: POLYETHYLENE GLYCOL 3350 17 GM POWD.PACK PO SCH (08:54)
[2022-06-23] MEDS: THIAMINE HCL 100 MG TABLET PO SCH (08:55)
[2022-06-23] MEDS: LEVETIRACETAM (250 MG) 250 MG TABLET PO SCH (08:55)
[2022-06-23] MEDS: DIVALPROEX SODIUM 125 MG CAP.SPRINK PO SCH ×3 (08:55→21:18)
[2022-06-23] MEDS: MULTIVIT W/MINERALS 1 TAB TABLET PO SCH (08:55)
[2022-06-23] MEDS: OLANZAPINE 2.5 MG TABLET PO SCH ×3 (08:55→17:40)
[2022-06-23] MEDS: NITROFURANTOIN/MONOHYDRATE MACROCRYSTALS 100 MG CAPSULE PO SCH ×2 (08:55→20:25)
[2022-06-23] MEDS: CALCIUM CARB 250MG /VITAMIN D 1 UDTAB PO SCH (08:55)
[2022-06-23] MEDS: DOCUSATE SODIUM 100 MG CAPSULE PO SCH ×2 (08:55→17:40)
[2022-06-23] MEDS: FOLIC ACID 1 MG TABLET PO SCH (08:55)
[2022-06-23] MEDS: MUPIROCIN OINT 2% 22 GM TUBE NS SCH ×2 (08:56→20:26)
[2022-06-23] MEDS: INSULIN REGULAR, HUMAN 100 UNIT/ML 3 ML VIAL SQ PRN ×3 (09:47→18:24)
--- NOTE | 2022-06-23 14:40 | NUR ---
NURSE NOTE: PT AGITATED AT THIS TIME. ATIVAN ADMINISTERED ORDERED. WILL CONT TO MONITOR. Addendum: 06/24/22 at 0742 by ARTURO POLLACK RN SCANNED MEDICATION BUT FORGOT TO SAVE. MEDICATION WAS GIVEN.
[2022-06-23 16:06] VITALS: BP 149/85
[2022-06-23 20:20] VITALS: BP 141/73
[2022-06-23] MEDS: OLANZAPINE 5 MG TABLET PO SCH (20:25)
--- NOTE | 2022-06-23 20:30 | NUR ---
GPS RN NOTES: ATIVAN 0.5MG 1TAB GIVEN FOR ANXIETY, RESTLESSNESS YELLING AND BANGING AT 2026. WILL CONTINUE TO MONITOR.
[2022-06-23] MEDS: FINASTERIDE (5 MG) 5 MG TABLET PO SCH (21:17)
[2022-06-23] MEDS: TAMSULOSIN 0.4 MG CAP.SR.24H PO SCH (21:17)
[2022-06-23] MEDS: TEMAZEPAM 7.5 MG CAPSULE PO PRN (21:26)
--- NOTE | 2022-06-23 21:27 | NUR ---
[facility]PS RN NOTES: RESTORIL 7.5MG 1CAP GIVEN PO AT 2125 FOR SLEEP D/T INSOMNIA. WILL CONTINUE TO TR.
[2022-06-23] MEDS: *INSULIN REGULAR(HUMULIN R)HUM 100 UNIT/ML VIAL SQ PRN (21:41)
[2022-06-23] MEDS: INSULIN GLARGINE, 100 UNIT/ML CARTRIDGE SQ SCH (21:42)
[2022-06-24] MEDS: BLOOD SUGAR DIAGNOSTIC 1 EACH STRIP VI SCH ×4 (07:31→22:07)
[2022-06-24 08:00] VITALS: BP 145/93
[2022-06-24] MEDS: POLYETHYLENE GLYCOL 3350 17 GM POWD.PACK PO SCH (08:23)
[2022-06-24] MEDS: NITROFURANTOIN/MONOHYDRATE MACROCRYSTALS 100 MG CAPSULE PO SCH ×2 (08:24→21:33)
[2022-06-24] MEDS: LEVETIRACETAM (250 MG) 250 MG TABLET PO SCH (08:24)
[2022-06-24] MEDS: MUPIROCIN OINT 2% 22 GM TUBE NS SCH ×2 (08:24→21:00)
[2022-06-24] MEDS: CALCIUM CARB 250MG /VITAMIN D 1 UDTAB PO SCH (08:24)
[2022-06-24] MEDS: THIAMINE HCL 100 MG TABLET PO SCH (08:24)
[2022-06-24] MEDS: OLANZAPINE 2.5 MG TABLET PO SCH ×4 (08:24→21:34)
[2022-06-24] MEDS: DOCUSATE SODIUM 100 MG CAPSULE PO SCH ×2 (08:24→17:53)
[2022-06-24] MEDS: DIVALPROEX SODIUM 125 MG CAP.SPRINK PO SCH ×3 (08:24→21:36)
[2022-06-24] MEDS: MULTIVIT W/MINERALS 1 TAB TABLET PO SCH (08:24)
[2022-06-24] MEDS: FOLIC ACID 1 MG TABLET PO SCH (08:24)
[2022-06-24] MEDS: INSULIN REGULAR, HUMAN 100 UNIT/ML 3 ML VIAL SQ PRN ×2 (09:26→12:14)
[2022-06-24] MEDS: LORAZEPAM 0.5 MG TABLET PO PRN ×2 (11:13→18:30)
--- NOTE | 2022-06-24 11:15 | NUR ---
NURSE NOTE: PT AGITATED AT THIS TIME. ATIVAN ADMINISTERED ORDERED. WILL CONT TO MONITOR.
--- NOTE | 2022-06-24 12:00 | NUR ---
NURSE NOTE: PT CALM AT THIS TIME. ATIVAN EFFECTIVE AT THIS TIME. WILL CONT TO MONITOR.
--- NOTE | 2022-06-24 15:00 | NUR ---
NURSE NOTE: PT C/O PAIN. TYLENOL ADMINISTERED ORDERED. WILL CONT TO MONITOR.
[2022-06-24] MEDS: ACETAMINOPHEN 325 MG TABLET PO PRN (15:32)
[2022-06-24 16:00] VITALS: BP 133/82
--- NOTE | 2022-06-24 16:00 | NUR ---
NURSE NOTE: PT CALM AT THIS TIME. NO S/S OF PAIN.
--- NOTE | 2022-06-24 18:30 | NUR ---
NURSE NOTE: PT IN AGITATED STATED. SCREAMING OUT LOUD. ATIVAN ADMINISTERED ORDERED. WILL CONT TO MONITOR.
--- NOTE | 2022-06-24 19:04 | NUR ---
NURSE NOTE: PT ,ALERT AND ORT X1 ,GUARDED, NO ACUTE DISTRESS NOTED. COMPLIANT WITH MEDICATIONS. NOTED WITH TALKING AND MUMBLING TO SELF. VERY NEEDY, NEEDS FREQUENT REDIRECTIONS AND REORIENTATION .MODERATE ASSIST WITH ADL'S .ALL NEEDS ATTENDED AND ANTICIPATED. AMBULATORY WITH ASSIST TO THE BATHROOM, UNSTEADY GAIT. WILL CONT. TO MONITOR FOR SAFETY AND BEHAVIOR.WILL ENDORSE TO INCOMING SHIFT FOR CONTINUITY OF CARE
[2022-06-24 20:00] VITALS: BP 130/93
[2022-06-24] MEDS: TEMAZEPAM 7.5 MG CAPSULE PO PRN (21:35)
[2022-06-24] MEDS: TAMSULOSIN 0.4 MG CAP.SR.24H PO SCH (21:35)
[2022-06-24] MEDS: FINASTERIDE (5 MG) 5 MG TABLET PO SCH (21:36)
[2022-06-24] MEDS: OLANZAPINE 5 MG TABLET PO SCH (21:37)
[2022-06-24] MEDS: INSULIN GLARGINE, 100 UNIT/ML CARTRIDGE SQ SCH (22:07)
[2022-06-24] MEDS: *INSULIN REGULAR(HUMULIN R)HUM 100 UNIT/ML VIAL SQ PRN (22:09)
[2022-06-25 06:51] LABS: BASOPHILS % (AUTO) 0.2 % (0.0-2.0); EOSINOPHILS % (AUTO) 0.7 % (0.0-6.0); HEMATOCRIT 36 % (39-51); HEMOGLOBIN 11.8 g/dL (13.5-17.5); LYMPHOCYTES # (AUTO) 1.9 K/uL (0.8-4.8); LYMPHOCYTES % (AUTO) 22.6 % (20.0-44.0); MEAN CORPUSCULAR HGB CONC 33 g/dl (31.0-36.0); MEAN CORPUSCULAR VOLUME 100 fL (80-96); MONOCYTES # (AUTO) 0.9 K/uL (0.1-1.30); MONOCYTES % (AUTO) 10.5 % (2.0-12.0); NEUTROPHILS # (AUTO) 5.7 K/uL (1.8-8.9); PLATELET COUNT (AUTO) 379 K/uL (150-450); RED BLOOD CELL COUNT(AUTO) 3.57 MIL/uL (4.5-6.0); WHITE BLOOD COUNT (AUTO) 8.6 K/uL (4.3-11.0)
[2022-06-25 07:16] LABS: VALPROIC ACID 69 ug/mL (50-100)
[2022-06-25 07:20] LABS: ALANINE AMINOTRANSFERASE 13 U/L (12-78); ALBUMIN 3.2 g/dL (3.4-5.0); ALKALINE PHOSPHATASE 61 U/L (46-116); ASPARTATE AMINOTRANSFERASE 9 U/L (15-37); BILIRUBIN,TOTAL 0.6 mg/dL (0.2-1.0); CALCIUM, SERUM 8.9 mg/dL (8.5-10.1); CARBON DIOXIDE 31 mmol/L (21-32); CHLORIDE 112 mmol/L (98-107); GLUCOSE 184 mg/dL (74-106); POTASSIUM 3.6 mmol/L (3.5-5.1); SODIUM SERUM 149 mmol/L (136-145); UREA NITROGEN, BLOOD 33 mg/dL (7-18)
[2022-06-25] MEDS: BLOOD SUGAR DIAGNOSTIC 1 EACH STRIP VI SCH ×4 (07:30→22:02)
[2022-06-25 07:44] LABS: SERUM AMMONIA 36 umol/L (11-32)
--- NOTE | 2022-06-25 07:45 | NUR ---
WOUND CARE CONSULT: PT PRESENTS WITH SOME REDNESS TO TOES ON RT FOOT AND DISCOLORATION TO BUTTOCKS ON RT SIDE, PRESENT ON ADMISSION. PT IS INDEPENDENT WITH BED MOBILITY. DISCUSSED SKIN PROTECTION WITH NURSING STAFF. MD IN AGREEMENT WITH PLAN OF CARE.
[2022-06-25 08:00] VITALS: BP 129/88
[2022-06-25] MEDS: MUPIROCIN OINT 2% 22 GM TUBE NS SCH ×2 (09:00→21:56)
[2022-06-25] MEDS: POLYETHYLENE GLYCOL 3350 17 GM POWD.PACK PO SCH (09:00)
[2022-06-25] MEDS: DIVALPROEX SODIUM 125 MG CAP.SPRINK PO SCH ×3 (09:14→21:58)
[2022-06-25] MEDS: MULTIVIT W/MINERALS 1 TAB TABLET PO SCH (09:15)
[2022-06-25] MEDS: NITROFURANTOIN/MONOHYDRATE MACROCRYSTALS 100 MG CAPSULE PO SCH ×2 (09:15→21:56)
[2022-06-25] MEDS: DOCUSATE SODIUM 100 MG CAPSULE PO SCH ×2 (09:15→17:49)
[2022-06-25] MEDS: FOLIC ACID 1 MG TABLET PO SCH (09:15)
[2022-06-25] MEDS: LORAZEPAM 0.5 MG TABLET PO PRN (09:15)
[2022-06-25] MEDS: OLANZAPINE 2.5 MG TABLET PO SCH (09:16)
[2022-06-25] MEDS: LEVETIRACETAM (250 MG) 250 MG TABLET PO SCH (09:16)
[2022-06-25] MEDS: THIAMINE HCL 100 MG TABLET PO SCH (09:16)
[2022-06-25] MEDS: CALCIUM CARB 250MG /VITAMIN D 1 UDTAB PO SCH (09:17)
--- NOTE | 2022-06-25 10:15 | NUR ---
Court Notification: SW attempted to contact pt's family member Belkis ([phone]) and left a voicemail for 5250 hearing.
--- NOTE | 2022-06-25 10:16 | NUR ---
Court Hearing: Patient's court hearing for 8840 was today and it was upheld for danger to others and GD.
--- NOTE | 2022-06-25 11:35 | NUR ---
RN NOTES PERFORMED FULL SKIN / BODY CHECK ON PT WITH DRILL OPERATOR PNEUMATIC, DISCOLORATION NOTED ON RIGHT BUTTOCK INNER OUTER UPPER AND LOWER, APPEARS TO HAVE OCCURRED FROM A PREVIOUS FALL BEFORE ENTERING HOSPITAL, RIGHT FOOT ALL TOES RED AND TENDER TO TOUCH, WILL AWAIT ANY NEW ORDERS AT THIS TIME AND WILL CONTINUE TO REPOSITION Q 2 HOURS, PT IS ABLE TO MOVE AND MAKE SELF COMFORTABLE WELL.
[2022-06-25] MEDS ORDERED: LORAZEPAM INJ 2 MG/ML VIAL IM STA (12:33)
[2022-06-25] MEDS ORDERED: HALOPERIDOL LACTATE INJ 5 MG/ML VIAL IM STA (12:33)
[2022-06-25] MEDS: risperiDONE 1 MG TABLET PO SCH ×2 (13:00→17:47)
[2022-06-25] MEDS: LORAZEPAM 0.5 MG TABLET PO SCH ×2 (13:41→17:00)
--- NOTE | 2022-06-25 14:33 | NUR ---
PT REQUESTED INJECTION VOLUNTARILY AND NO PHYSICAL HOLD NEEDED, ABLE TO ADMIN MED AND NO ADVERSE SIDE EFFECTS NOTED AT THIS TIME, WILL CONTINUE TO MONITOR
--- NOTE | 2022-06-25 14:53 | NUR ---
MD HELD RESPERIDONE PO ORDER DUE TO IM ORDERS GIVEN, CLOSELY MONITORING PT, SITTING IN HERNANDES RELAXING IN CHEN CHAIR AT THIS TIME ,
[2022-06-25 16:02] VITALS: BP 137/90
--- NOTE | 2022-06-25 17:51 | NUR ---
RN NOTES IM INJ ORDERS EFFECTIVE , PT CALM RELAXED, EASILY AROUSED IN AND OUT OF REST, MOVED FROM CHEN CHAIR TO BED FOR SAFETY PT WAS FALLING ASLEEP IN CHEN CHAIR, ATIVAN HELD DUE TO PT BEING CALM , ASLEEP AND PEACEFUL, DID NOT WANT TO FURTHER MEDICATE PT ON ANY OTHER NARCOTICS ONES HE IS ON ARE EFFECTIVE AND HELPING MAINTAIN A CALM STEADY BASELINE AT THIS TIME, HELD THE BS READING TO NOT IRRITATE PT AT THIS TIME HE IS CALM NOT SCREAMING NOR HOLLERING AND WILL RELAY TASK TO ONCOMING NURSE SHIFT WHEN PT WAKES UP FROM SLEEP , PT COMFORTABLE AND PEACEFULLY RESTING QUIETLY IN BED.
[2022-06-25 20:29] VITALS: BP 123/91
[2022-06-25] MEDS: TAMSULOSIN 0.4 MG CAP.SR.24H PO SCH (21:57)
[2022-06-25] MEDS: FINASTERIDE (5 MG) 5 MG TABLET PO SCH (21:57)
[2022-06-25] MEDS: INSULIN GLARGINE, 100 UNIT/ML CARTRIDGE SQ SCH (22:04)
[2022-06-25] MEDS: *INSULIN REGULAR(HUMULIN R)HUM 100 UNIT/ML VIAL SQ PRN (22:07)
[2022-06-26] MEDS: LORAZEPAM 0.5 MG TABLET PO PRN (02:42)
--- NOTE | 2022-06-26 02:44 | NUR ---
Pt awake, constantly trying to climb out of bed and yelling out loud uncontrollably. Pt is clean and dry. Least restrictive measures ineffective. Ativan 0.5 mg po prn given as ordered. Will continue to monitor.
--- NOTE | 2022-06-26 04:00 | NUR ---
Post 1 hr ativan effective. Pt awake but calm. Frequent visual check done for safety. Will continue to monitor.
[2022-06-26] MEDS: BLOOD SUGAR DIAGNOSTIC 1 EACH STRIP VI SCH ×4 (07:33→22:11)
[2022-06-26] MEDS: INSULIN REGULAR, HUMAN 100 UNIT/ML 3 ML VIAL SQ PRN ×3 (07:37→17:48)
[2022-06-26 08:00] VITALS: BP 145/87
[2022-06-26] MEDS: risperiDONE 1 MG TABLET PO SCH ×3 (08:01→17:46)
[2022-06-26] MEDS: CALCIUM CARB 250MG /VITAMIN D 1 UDTAB PO SCH (08:01)
[2022-06-26] MEDS: THIAMINE HCL 100 MG TABLET PO SCH (08:01)
[2022-06-26] MEDS: LEVETIRACETAM (250 MG) 250 MG TABLET PO SCH (08:01)
[2022-06-26] MEDS: DIVALPROEX SODIUM 125 MG CAP.SPRINK PO SCH ×3 (08:01→22:11)
[2022-06-26] MEDS: FOLIC ACID 1 MG TABLET PO SCH (08:01)
[2022-06-26] MEDS: MULTIVIT W/MINERALS 1 TAB TABLET PO SCH (08:01)
[2022-06-26] MEDS: DOCUSATE SODIUM 100 MG CAPSULE PO SCH ×2 (08:01→17:46)
[2022-06-26] MEDS: NITROFURANTOIN/MONOHYDRATE MACROCRYSTALS 100 MG CAPSULE PO SCH ×2 (08:01→20:08)
[2022-06-26] MEDS: MUPIROCIN OINT 2% 22 GM TUBE NS SCH ×2 (08:02→20:39)
[2022-06-26] MEDS: LORAZEPAM 0.5 MG TABLET PO SCH ×3 (08:02→17:46)
[2022-06-26] MEDS: POLYETHYLENE GLYCOL 3350 17 GM POWD.PACK PO SCH (08:02)
[2022-06-26] MEDS: ACETAMINOPHEN 325 MG TABLET PO PRN (09:33)
[2022-06-26] MEDS ORDERED: LORAZEPAM INJ 2 MG/ML VIAL IM STA (09:47)
[2022-06-26] MEDS ORDERED: HALOPERIDOL LACTATE INJ 5 MG/ML VIAL IM STA (09:47)
--- NOTE | 2022-06-26 10:09 | NUR ---
Pt voluntary accept emergency Injection ,Ativan 1MG IM and Haldol 5MG IM given ,no physical hold ,pt request injection.will continue to monitor .
[2022-06-26] MEDS ORDERED: risperiDONE-M 0.5 MG TAB.RAPDIS PO PRN (11:00)
[2022-06-26 16:00] VITALS: BP 125/85
[2022-06-26 19:55] VITALS: BP 127/79
[2022-06-26 20:00] VITALS: BP 127/79
[2022-06-26] MEDS: TEMAZEPAM 15 MG CAPSULE PO SCH (20:20)
[2022-06-26] MEDS: TAMSULOSIN 0.4 MG CAP.SR.24H PO SCH (21:23)
[2022-06-26] MEDS: FINASTERIDE (5 MG) 5 MG TABLET PO SCH (21:23)
[2022-06-26] MEDS: INSULIN GLARGINE, 100 UNIT/ML CARTRIDGE SQ SCH (22:25)
[2022-06-26] MEDS: *INSULIN REGULAR(HUMULIN R)HUM 100 UNIT/ML VIAL SQ PRN (22:27)
--- NOTE | 2022-06-27 06:22 | NUR ---
RN NOTE PATIENT URINATED AND WET HIS DIAPER THROUGH OUT THE SHIFT, NO S/S OF PAIN NOTED. PATIENT SLEPT WELL AT NIGHT.
[2022-06-27] MEDS: BLOOD SUGAR DIAGNOSTIC 1 EACH STRIP VI SCH ×4 (07:53→22:29)
[2022-06-27 08:00] VITALS: BP 137/78
[2022-06-27] MEDS: MUPIROCIN OINT 2% 22 GM TUBE NS SCH ×2 (09:12→21:06)
[2022-06-27] MEDS: CALCIUM CARB 250MG /VITAMIN D 1 UDTAB PO SCH (09:12)
[2022-06-27] MEDS: FOLIC ACID 1 MG TABLET PO SCH (09:12)
[2022-06-27] MEDS: MULTIVIT W/MINERALS 1 TAB TABLET PO SCH (09:12)
[2022-06-27] MEDS: DOCUSATE SODIUM 100 MG CAPSULE PO SCH ×2 (09:12→16:50)
[2022-06-27] MEDS: POLYETHYLENE GLYCOL 3350 17 GM POWD.PACK PO SCH (09:12)
[2022-06-27] MEDS: LEVETIRACETAM (250 MG) 250 MG TABLET PO SCH (09:13)
[2022-06-27] MEDS: NITROFURANTOIN/MONOHYDRATE MACROCRYSTALS 100 MG CAPSULE PO SCH ×2 (09:13→21:06)
[2022-06-27] MEDS: LORAZEPAM 0.5 MG TABLET PO SCH (09:14)
[2022-06-27] MEDS: risperiDONE 1 MG TABLET PO SCH ×3 (09:16→16:50)
[2022-06-27] MEDS: THIAMINE HCL 100 MG TABLET PO SCH (09:16)
[2022-06-27] MEDS: DIVALPROEX SODIUM 125 MG CAP.SPRINK PO SCH ×3 (09:19→22:26)
[2022-06-27] MEDS: INSULIN REGULAR, HUMAN 100 UNIT/ML 3 ML VIAL SQ PRN ×3 (09:46→17:38)
--- NOTE | 2022-06-27 11:24 | NUR ---
Dr. Vee in the uinit and seen pt and ordered to decrease Ativan to 0.5 mg po TID.
[2022-06-27] MEDS: LORAZEPAM 1 MG TABLET PO SCH ×2 (12:38→16:50)
[2022-06-27] MEDS ORDERED: LORAZEPAM 0.5 MG TABLET PO SCH (13:00)
[2022-06-27] MEDS ORDERED: LORAZEPAM 0.5 MG TABLET PO PRN (13:00)
--- NOTE | 2022-06-27 13:42 | NUR ---
Pt. is highly agitated, screaming, yelling and disruptive in the unit. Notified dr. Vee and put back Ativan 1 mg TID po.
[2022-06-27 16:00] VITALS: BP 139/82
[2022-06-27 18:42] VITALS: BP 119/76
[2022-06-27 20:00] VITALS: BP 120/85
--- NOTE | 2022-06-27 20:25 | NUR ---
RN NOTES: PATIENT WATCHING TV IN ACTIVITY ROOM. PATIENT CONFUSED,PARANOID ANXIOUS,FORGETFUL,HYPERVERBAL DISORGANIZED, SCREAMING YELLING GIVING INAPPROPRIATE ANSWER TO QUESTIONS, PARANOID, NONREDIRECTABLE,REFUSED GO BACK TO HER BED, NEEDS FREQUENT REDIRECTION. DENIES SI/HI AT THIS TIME.ENCOURAGE TO VERBALIZED ANY FEELING OR CONCERN, SAFETY MEASURES IN PLACE. WILL CONTINUE TO MONITOR Q15MIN ROUNDS FOR SAFETY AND BEHAVIOR.
[2022-06-27] MEDS: TEMAZEPAM 15 MG CAPSULE PO SCH (21:06)
[2022-06-27] MEDS ORDERED: risperiDONE 1 MG TABLET PO SCH (22:00)
[2022-06-27] MEDS: FINASTERIDE (5 MG) 5 MG TABLET PO SCH (22:26)
[2022-06-27] MEDS: TAMSULOSIN 0.4 MG CAP.SR.24H PO SCH (22:26)
[2022-06-27] MEDS: INSULIN GLARGINE, 100 UNIT/ML CARTRIDGE SQ SCH (22:33)
[2022-06-27] MEDS: *INSULIN REGULAR(HUMULIN R)HUM 100 UNIT/ML VIAL SQ PRN (22:36)
[2022-06-28 06:48] LABS: BASOPHILS % (AUTO) 0.3 % (0.0-2.0); HEMATOCRIT 40 % (39-51); HEMOGLOBIN 12.8 g/dL (13.5-17.5); LYMPHOCYTES # (AUTO) 1.6 K/uL (0.8-4.8); LYMPHOCYTES % (AUTO) 24.7 % (20.0-44.0); MEAN CORPUSCULAR HGB CONC 32 g/dl (31.0-36.0); MEAN CORPUSCULAR VOLUME 101 fL (80-96); MONOCYTES # (AUTO) 0.6 K/uL (0.1-1.30); NEUTROPHILS # (AUTO) 3.9 K/uL (1.8-8.9); PLATELET COUNT (AUTO) 321 K/uL (150-450); RED BLOOD CELL COUNT(AUTO) 3.93 MIL/uL (4.5-6.0); WHITE BLOOD COUNT (AUTO) 6.5 K/uL (4.3-11.0)
[2022-06-28 07:06] LABS: VALPROIC ACID 81 ug/mL (50-100)
[2022-06-28 07:13] LABS: ALANINE AMINOTRANSFERASE 32 U/L (12-78); ALBUMIN 3.4 g/dL (3.4-5.0); ALKALINE PHOSPHATASE 80 U/L (46-116); ASPARTATE AMINOTRANSFERASE 22 U/L (15-37); BILIRUBIN,TOTAL 0.7 mg/dL (0.2-1.0); CALCIUM, SERUM 9.2 mg/dL (8.5-10.1); CARBON DIOXIDE 34 mmol/L (21-32); CHLORIDE 114 mmol/L (98-107); CREATININE 1.2 mg/dL (0.6-1.3); GLUCOSE 318 mg/dL (74-106); POTASSIUM 3.9 mmol/L (3.5-5.1); SODIUM SERUM 154 mmol/L (136-145); TOTAL PROTEIN, SERUM 7.3 g/dL (6.4-8.2); UREA NITROGEN, BLOOD 25 mg/dL (7-18)
[2022-06-28 07:20] LABS: SERUM AMMONIA < 10 umol/L (11-32)
[2022-06-28 08:00] VITALS: BP 150/90
[2022-06-28] MEDS: BLOOD SUGAR DIAGNOSTIC 1 EACH STRIP VI SCH ×4 (08:04→21:55)
[2022-06-28] MEDS: FOLIC ACID 1 MG TABLET PO SCH (08:15)
[2022-06-28] MEDS: LORAZEPAM 1 MG TABLET PO SCH (08:15)
[2022-06-28] MEDS: LEVETIRACETAM (250 MG) 250 MG TABLET PO SCH (08:15)
[2022-06-28] MEDS: MULTIVIT W/MINERALS 1 TAB TABLET PO SCH (08:15)
[2022-06-28] MEDS: THIAMINE HCL 100 MG TABLET PO SCH (08:15)
[2022-06-28] MEDS: DIVALPROEX SODIUM 125 MG CAP.SPRINK PO SCH ×3 (08:16→21:51)
[2022-06-28] MEDS: DOCUSATE SODIUM 100 MG CAPSULE PO SCH ×2 (08:16→17:55)
[2022-06-28] MEDS: POLYETHYLENE GLYCOL 3350 17 GM POWD.PACK PO SCH (08:16)
[2022-06-28] MEDS: CALCIUM CARB 250MG /VITAMIN D 1 UDTAB PO SCH (08:16)
[2022-06-28] MEDS: risperiDONE 1 MG TABLET PO SCH ×2 (08:18→09:18)
[2022-06-28] MEDS: INSULIN REGULAR, HUMAN 100 UNIT/ML 3 ML VIAL SQ PRN ×3 (09:13→21:55)
[2022-06-28] MEDS ORDERED: OLANZAPINE 10 MG VIAL IM ONE (10:30)
[2022-06-28] MEDS: OLANZAPINE 5 MG TABLET PO SCH ×2 (13:25→17:55)
[2022-06-28 16:00] VITALS: BP 132/92
[2022-06-28] MEDS: GLUCERNA SHAKE 237 ML CAN PO SCH (17:53)
--- NOTE | 2022-06-28 19:30 | NUR ---
GPS RN NOTE, RECEIVED PATIENT AWAKE AND IN BED, NO S/S OR COMPLAINTS OF PAIN AT THIS TIME. PATIENT IS DISPLAYING NO S/S OF APPARENT DISTRESS AT THIS TIME. PATIENT BREATHING IS UNLABORED WITH EQUAL RISE AND FALL OF THE CHEST. PATIENT IS ALERT AND ORIENTED X 1 ON ROOM AIR WITH A SPO2 99%. PATIENT IS COMPLIANT WITH MEDICATIONS, CONFUSED, FORGETFUL, ANXIOUS, RESTLESS, PARANOID, AND UNCOOPERATIVE. PATIENT DENIES SUICIDAL AND HOMICIDAL IDEATIONS AT THIS TIME. PATIENT ASSISTED WITH TURNING AND REPOSITIONING Q2HR AND PRN FOR COMFORT AND CIRCULATION. PATIENT HAS NO NEEDS AT THIS TIME. PATIENT EDUCATED ON THE USE OF THE CALL YARBROUGH. PATIENT BED SIDE RAILS UP X 2 FOR SAFETY. PATIENT BED IS LOCKED, LOW, WITH BED ALARM ON. WILL CONTINUE TO MONITOR THIS PATIENT Q15 MINUTES WITH THE HELP OF STAFF TO MAINTAIN SAFETY.
[2022-06-28 20:34] VITALS: BP 121/71
[2022-06-28] MEDS: FINASTERIDE (5 MG) 5 MG TABLET PO SCH (21:51)
[2022-06-28] MEDS: TAMSULOSIN 0.4 MG CAP.SR.24H PO SCH (21:51)
[2022-06-28] MEDS: TEMAZEPAM 15 MG CAPSULE PO SCH (21:51)
--- NOTE | 2022-06-28 21:51 | NUR ---
GPS RN NOTE, PATIENT HAS A COMPLAINT OF NOT BEING ABLE TO SLEEP AND IS REQUESTING RESTORIL AT THIS TIME. PATIENT VITAL SIGNS ARE STABLE. GAVE RESTORIL 15MG PO HS ORDERED. WILL REASSESS OR INSOMNIA AND I WILL CONTINUE TO MONITOR THIS PATIENT WITH THE HELP OF STAFF.
[2022-06-28] MEDS: INSULIN GLARGINE, 100 UNIT/ML CARTRIDGE SQ SCH (21:54)
--- NOTE | 2022-06-28 21:55 | NUR ---
GPS RN NOTE, PERFORMED ACCU CHECK ON PATIENT WITH A BLOOD SUGAR RESULT OF 371. GAVE 10 UNITS OF REGULAR INSULIN SQ PER INSULIN SLIDING SCALE AND 15 UNITS OF LANTUS SQ ORDERED. GAVE SNACK AND JUICE. WILL CONTINUE TO MONITOR THIS PATIENT WITH THE HELP OF STAFF.
[2022-06-29] MEDS: *INSULIN REGULAR(HUMULIN R)HUM 100 UNIT/ML VIAL SQ PRN ×2 (02:15→22:04)
[2022-06-29 08:00] VITALS: BP 141/86
[2022-06-29] MEDS: BLOOD SUGAR DIAGNOSTIC 1 EACH STRIP VI SCH ×4 (08:04→21:58)
[2022-06-29] MEDS: GLUCERNA SHAKE 237 ML CAN PO SCH ×2 (08:04→17:13)
[2022-06-29] MEDS: POLYETHYLENE GLYCOL 3350 17 GM POWD.PACK PO SCH (08:09)
[2022-06-29] MEDS: DIVALPROEX SODIUM 125 MG CAP.SPRINK PO SCH ×3 (08:09→21:47)
[2022-06-29] MEDS: MULTIVIT W/MINERALS 1 TAB TABLET PO SCH (08:09)
[2022-06-29] MEDS: DOCUSATE SODIUM 100 MG CAPSULE PO SCH ×2 (08:09→17:15)
[2022-06-29] MEDS: CALCIUM CARB 250MG /VITAMIN D 1 UDTAB PO SCH (08:09)
[2022-06-29] MEDS: OLANZAPINE 5 MG TABLET PO SCH ×3 (08:09→17:15)
[2022-06-29] MEDS: FOLIC ACID 1 MG TABLET PO SCH (08:09)
[2022-06-29] MEDS: LEVETIRACETAM (250 MG) 250 MG TABLET PO SCH (08:09)
[2022-06-29] MEDS: THIAMINE HCL 100 MG TABLET PO SCH (08:09)
[2022-06-29] MEDS: INSULIN REGULAR, HUMAN 100 UNIT/ML 3 ML VIAL SQ PRN ×3 (08:11→17:47)
[2022-06-29 16:00] VITALS: BP 130/82
--- NOTE | 2022-06-29 19:30 | NUR ---
GPS RN NOTE, RECEIVED PATIENT AWAKE AND IN BED, NO S/S OR COMPLAINTS OF PAIN AT THIS TIME. PATIENT IS DISPLAYING NO S/S OF APPARENT DISTRESS AT THIS TIME. PATIENT BREATHING IS UNLABORED WITH EQUAL RISE AND FALL OF THE CHEST. PATIENT IS ALERT AND ORIENTED X 1 ON ROOM AIR WITH A SPO2 96%. PATIENT IS COMPLIANT WITH MEDICATIONS, CONFUSED, FORGETFUL, ANXIOUS, RESTLESS, PARANOID, COMBATIVE WITH CARE, AND UNCOOPERATIVE. PATIENT DENIES SUICIDAL AND HOMICIDAL IDEATIONS AT THIS TIME. PATIENT ASSISTED WITH TURNING AND REPOSITIONING Q2HR AND PRN FOR COMFORT AND CIRCULATION. PATIENT HAS NO NEEDS AT THIS TIME. PATIENT EDUCATED ON THE USE OF THE CALL YARBR[place]. PATIENT BED SIDE RAILS UP X 2 FOR SAFETY. PATIENT BED IS LOCKED, LOW, WITH BED ALARM ON. WILL CONTINUE TO MONITOR THIS PATIENT Q15 MINUTES WITH THE HELP OF STAFF TO MAINTAIN SAFETY.
[2022-06-29 20:46] VITALS: BP 130/81
[2022-06-29] MEDS: TAMSULOSIN 0.4 MG CAP.SR.24H PO SCH (21:47)
[2022-06-29] MEDS: TEMAZEPAM 15 MG CAPSULE PO SCH (21:47)
[2022-06-29] MEDS: FINASTERIDE (5 MG) 5 MG TABLET PO SCH (21:48)
--- NOTE | 2022-06-29 21:58 | NUR ---
GPS RN NOTE, PERFORMED ACCU CHECK ON PATIENT WITH A BLOOD SUGAR RESULT OF 158. GAVE 2 UNITS OF REGULAR INSULIN SQ PER INSULIN SLIDING SCALE AND 15 UNITS OF LANTUS SQ ORDERED. GAVE SNACK AND JUICE. WILL CONTINUE TO MONITOR THIS PATIENT WITH THE HELP OF STAFF.
[2022-06-29] MEDS: INSULIN GLARGINE, 100 UNIT/ML CARTRIDGE SQ SCH (22:02)
[2022-06-30 06:50] LABS: BASOPHILS % (AUTO) 0.4 % (0.0-2.0); EOSINOPHILS % (AUTO) 4.4 % (0.0-6.0); HEMATOCRIT 40 % (39-51); HEMOGLOBIN 13.3 g/dL (13.5-17.5); LYMPHOCYTES # (AUTO) 2.3 K/uL (0.8-4.8); LYMPHOCYTES % (AUTO) 29.2 % (20.0-44.0); MEAN CORPUSCULAR HGB CONC 33 g/dl (31.0-36.0); MEAN CORPUSCULAR VOLUME 100 fL (80-96); MONOCYTES # (AUTO) 0.7 K/uL (0.1-1.30); MONOCYTES % (AUTO) 9.1 % (2.0-12.0); NEUTROPHILS # (AUTO) 4.4 K/uL (1.8-8.9); NEUTROPHILS % (AUTO) 56.9 % (43.0-81.0); PLATELET COUNT (AUTO) 305 K/uL (150-450); RED BLOOD CELL COUNT(AUTO) 4.04 MIL/uL (4.5-6.0); WHITE BLOOD COUNT (AUTO) 7.7 K/uL (4.3-11.0)
[2022-06-30 07:26] LABS: CREATININE 1.1 mg/dL (0.6-1.3); MAGNESIUM 2.3 mg/dL (1.8-2.4); PHOSPHORUS 3.7 mg/dL (2.5-4.9); POTASSIUM 3.6 mmol/L (3.5-5.1)
[2022-06-30 08:00] VITALS: BP 122/79
[2022-06-30] MEDS: DOCUSATE SODIUM 100 MG CAPSULE PO SCH ×2 (08:20→17:00)
[2022-06-30] MEDS: GLUCERNA SHAKE 237 ML CAN PO SCH ×2 (08:20→16:52)
[2022-06-30] MEDS: BLOOD SUGAR DIAGNOSTIC 1 EACH STRIP VI SCH ×4 (08:20→22:38)
[2022-06-30] MEDS: FOLIC ACID 1 MG TABLET PO SCH (08:20)
[2022-06-30] MEDS: CALCIUM CARB 250MG /VITAMIN D 1 UDTAB PO SCH (08:21)
[2022-06-30] MEDS: THIAMINE HCL 100 MG TABLET PO SCH (08:21)
[2022-06-30] MEDS: MULTIVIT W/MINERALS 1 TAB TABLET PO SCH (08:21)
[2022-06-30] MEDS: POLYETHYLENE GLYCOL 3350 17 GM POWD.PACK PO SCH (08:21)
[2022-06-30] MEDS: DIVALPROEX SODIUM 125 MG CAP.SPRINK PO SCH ×3 (08:21→21:59)
[2022-06-30] MEDS: LEVETIRACETAM (250 MG) 250 MG TABLET PO SCH (08:21)
[2022-06-30] MEDS: OLANZAPINE 5 MG TABLET PO SCH ×3 (08:21→16:54)
[2022-06-30] MEDS: INSULIN REGULAR, HUMAN 100 UNIT/ML 3 ML VIAL SQ PRN ×3 (08:29→17:48)
[2022-06-30 16:00] VITALS: BP 123/79
[2022-06-30 20:52] VITALS: BP 121/76
[2022-06-30] MEDS: TEMAZEPAM 15 MG CAPSULE PO SCH (21:59)
[2022-06-30] MEDS: FINASTERIDE (5 MG) 5 MG TABLET PO SCH (21:59)
[2022-06-30] MEDS: TAMSULOSIN 0.4 MG CAP.SR.24H PO SCH (22:00)
[2022-06-30] MEDS: INSULIN GLARGINE, 100 UNIT/ML CARTRIDGE SQ SCH (22:38)
[2022-06-30] MEDS: *INSULIN REGULAR(HUMULIN R)HUM 100 UNIT/ML VIAL SQ PRN (22:39)
[2022-07-01 07:32] LABS: CALCIUM, SERUM 9.2 mg/dL (8.5-10.1); CARBON DIOXIDE 27 mmol/L (21-32); CHLORIDE 102 mmol/L (98-107); CREATININE 0.9 mg/dL (0.6-1.3); GLUCOSE 125 mg/dL (74-106); SODIUM SERUM 138 mmol/L (136-145); UREA NITROGEN, BLOOD 20 mg/dL (7-18)
[2022-07-01] MEDS: BLOOD SUGAR DIAGNOSTIC 1 EACH STRIP VI SCH ×4 (07:55→22:12)
[2022-07-01] MEDS: GLUCERNA SHAKE 237 ML CAN PO SCH ×2 (07:55→18:43)
[2022-07-01 08:00] VITALS: BP 122/72
[2022-07-01] MEDS: DOCUSATE SODIUM 100 MG CAPSULE PO SCH ×2 (08:35→17:57)
[2022-07-01] MEDS: FOLIC ACID 1 MG TABLET PO SCH (08:35)
[2022-07-01] MEDS: DIVALPROEX SODIUM 125 MG CAP.SPRINK PO SCH ×3 (08:35→22:00)
[2022-07-01] MEDS: THIAMINE HCL 100 MG TABLET PO SCH (08:35)
[2022-07-01] MEDS: MULTIVIT W/MINERALS 1 TAB TABLET PO SCH (08:35)
[2022-07-01] MEDS: LORAZEPAM 0.5 MG TABLET PO PRN ×2 (08:36→15:03)
[2022-07-01] MEDS: OLANZAPINE 5 MG TABLET PO SCH ×3 (08:36→17:57)
[2022-07-01] MEDS: LEVETIRACETAM (250 MG) 250 MG TABLET PO SCH (08:36)
[2022-07-01] MEDS: POLYETHYLENE GLYCOL 3350 17 GM POWD.PACK PO SCH (08:36)
[2022-07-01] MEDS: INSULIN REGULAR, HUMAN 100 UNIT/ML 3 ML VIAL SQ PRN ×3 (08:38→18:54)
[2022-07-01] MEDS: CALCIUM CARB 250MG /VITAMIN D 1 UDTAB PO SCH (08:39)
[2022-07-01] MEDS ORDERED: OLANZAPINE ZYDIS 5 MG TAB.RAPDIS PO ONE (11:00)
--- NOTE | 2022-07-01 15:30 | NUR ---
NURSE NOTE: PT AGITATED AT THIS TIME. SCREAMING. ATIVAN ADMINISTERED ORDERED. WILL CONT TO MONITOR.
[2022-07-01 16:00] VITALS: BP 130/70
[2022-07-01 20:20] VITALS: BP 128/73
[2022-07-01 20:28] VITALS: BP 128/73
[2022-07-01] MEDS: TEMAZEPAM 15 MG CAPSULE PO SCH (21:18)
[2022-07-01] MEDS: FINASTERIDE (5 MG) 5 MG TABLET PO SCH (21:55)
[2022-07-01] MEDS: TAMSULOSIN 0.4 MG CAP.SR.24H PO SCH (21:55)
[2022-07-01] MEDS: INSULIN GLARGINE, 100 UNIT/ML CARTRIDGE SQ SCH (22:46)
[2022-07-01] MEDS: *INSULIN REGULAR(HUMULIN R)HUM 100 UNIT/ML VIAL SQ PRN (23:03)
[2022-07-02 08:00] VITALS: BP 120/75
[2022-07-02] MEDS: GLUCERNA SHAKE 237 ML CAN PO SCH ×2 (08:00→17:00)
[2022-07-02] MEDS: BLOOD SUGAR DIAGNOSTIC 1 EACH STRIP VI SCH ×4 (09:17→21:26)
[2022-07-02] MEDS: LEVETIRACETAM (250 MG) 250 MG TABLET PO SCH (09:18)
[2022-07-02] MEDS: MULTIVIT W/MINERALS 1 TAB TABLET PO SCH (09:18)
[2022-07-02] MEDS: DIVALPROEX SODIUM 125 MG CAP.SPRINK PO SCH ×3 (09:18→21:04)
[2022-07-02] MEDS: THIAMINE HCL 100 MG TABLET PO SCH (09:18)
[2022-07-02] MEDS: POLYETHYLENE GLYCOL 3350 17 GM POWD.PACK PO SCH (09:18)
[2022-07-02] MEDS: CALCIUM CARB 250MG /VITAMIN D 1 UDTAB PO SCH (09:18)
[2022-07-02] MEDS: FOLIC ACID 1 MG TABLET PO SCH (09:19)
[2022-07-02] MEDS: OLANZAPINE 5 MG TABLET PO SCH ×3 (09:25→17:54)
[2022-07-02] MEDS: INSULIN REGULAR, HUMAN 100 UNIT/ML 3 ML VIAL SQ PRN ×2 (11:45→17:55)
[2022-07-02] MEDS: DOCUSATE SODIUM 100 MG CAPSULE PO SCH ×2 (12:39→17:53)
[2022-07-02 16:00] VITALS: BP 130/76
[2022-07-02 20:01] VITALS: BP 114/68
[2022-07-02] MEDS: TEMAZEPAM 15 MG CAPSULE PO SCH ×2 (20:56→21:00)
[2022-07-02] MEDS: FINASTERIDE (5 MG) 5 MG TABLET PO SCH (21:04)
[2022-07-02] MEDS: TAMSULOSIN 0.4 MG CAP.SR.24H PO SCH (21:04)
[2022-07-02] MEDS: INSULIN GLARGINE, 100 UNIT/ML CARTRIDGE SQ SCH (21:25)
[2022-07-02] MEDS: *INSULIN REGULAR(HUMULIN R)HUM 100 UNIT/ML VIAL SQ PRN (21:26)
[2022-07-03] MEDS: TEMAZEPAM 7.5 MG CAPSULE PO PRN (01:06)
--- NOTE | 2022-07-03 01:06 | NUR ---
RN note: Patient is awake at this time,turning and repositioning self in bed, noted to have difficulty staying asleep,given Restoril 7.5 mg PO as per assessment.No s/s of acute distress noted.Will continue to monitor for the effectiveness within 1 hour.
[2022-07-03] MEDS: BLOOD SUGAR DIAGNOSTIC 1 EACH STRIP VI SCH ×4 (07:54→21:59)
[2022-07-03] MEDS: GLUCERNA SHAKE 237 ML CAN PO SCH ×2 (07:56→17:32)
[2022-07-03 08:00] VITALS: BP 118/78
[2022-07-03] MEDS: THIAMINE HCL 100 MG TABLET PO SCH (08:29)
[2022-07-03] MEDS: MULTIVIT W/MINERALS 1 TAB TABLET PO SCH (08:29)
[2022-07-03] MEDS: DIVALPROEX SODIUM 125 MG CAP.SPRINK PO SCH ×3 (08:29→21:38)
[2022-07-03] MEDS: CALCIUM CARB 250MG /VITAMIN D 1 UDTAB PO SCH (08:30)
[2022-07-03] MEDS: FOLIC ACID 1 MG TABLET PO SCH (08:30)
[2022-07-03] MEDS: DOCUSATE SODIUM 100 MG CAPSULE PO SCH ×2 (08:30→17:31)
[2022-07-03] MEDS: POLYETHYLENE GLYCOL 3350 17 GM POWD.PACK PO SCH (08:30)
[2022-07-03] MEDS: OLANZAPINE 5 MG TABLET PO SCH ×3 (08:30→17:32)
[2022-07-03] MEDS: LEVETIRACETAM (250 MG) 250 MG TABLET PO SCH (08:30)
[2022-07-03] MEDS: *INSULIN REGULAR(HUMULIN R)HUM 100 UNIT/ML VIAL SQ PRN ×2 (08:32→21:57)
--- NOTE | 2022-07-03 09:10 | NUR ---
NURSE NOTE: PT AGITATED AT THIS TIME. ATIVAN ADMINISTERED ORDERED. PT TOLERATED WELL. WILL CONT TO MONITOR. Addendum: 07/03/22 at 1003 by ARTURO POLLACK RN PT YELLING OUT LOUD
[2022-07-03] MEDS: LORAZEPAM 0.5 MG TABLET PO PRN (09:18)
--- NOTE | 2022-07-03 10:00 | NUR ---
NURSE NOTE: PT CALM AT THIS TIME. ATIVAN EFFECTIVE. WILL CONT TO MONITOR.
[2022-07-03] MEDS: risperiDONE 1 MG TABLET PO SCH ×2 (12:46→17:32)
[2022-07-03] MEDS: INSULIN REGULAR, HUMAN 100 UNIT/ML 3 ML VIAL SQ PRN (12:49)
[2022-07-03 16:00] VITALS: BP 111/61
--- NOTE | 2022-07-03 18:45 | NUR ---
NURSE NOTE: TOOK ATIVAN AT 1710 TO GIVE TO PT D/T AGITATION, THEN PT ENDED UP FALLING ASLEEP. DID NOT GIVE ATIVAN. RETURNED TO [employer]. LATER ON SHOWED UP PARTIAL WASTE NEEDED. SPOKE WITH NIMA IN PHARMACY. WAS INSTRUCTED TO DO WASTE BUT UNDER REASON WRITE THAT ATIVAN WAS RETURNED. MEASUREMENT ADVISOR CAME UP AND FOUND [place] IN [place].
--- NOTE | 2022-07-03 19:43 | NUR ---
RN OPENING NOTES; RECEIVED PT IN THE GERICHAIR AWAKED, NO SIGN SOB/DISTRESS NOTED,BREATHING EVEN AND UNLABORED,NO UNUSUAL BEHAVIOR AT THIS TIME,SAFETY MEASURE INPLACE,CALL LIGHT WITHIN REACH,WILL CONTINUE TO MONITOR.
[2022-07-03 20:00] VITALS: BP 118/76
[2022-07-03] MEDS: FINASTERIDE (5 MG) 5 MG TABLET PO SCH (21:37)
[2022-07-03] MEDS: TEMAZEPAM 15 MG CAPSULE PO SCH (21:37)
[2022-07-03] MEDS: TAMSULOSIN 0.4 MG CAP.SR.24H PO SCH (21:37)
[2022-07-03] MEDS: INSULIN GLARGINE, 100 UNIT/ML CARTRIDGE SQ SCH (21:58)
[2022-07-04 08:00] VITALS: BP 113/78
[2022-07-04] MEDS: risperiDONE 1 MG TABLET PO SCH ×3 (08:52→16:46)
[2022-07-04] MEDS: LEVETIRACETAM (250 MG) 250 MG TABLET PO SCH (08:52)
[2022-07-04] MEDS: FOLIC ACID 1 MG TABLET PO SCH (08:52)
[2022-07-04] MEDS: DOCUSATE SODIUM 100 MG CAPSULE PO SCH ×2 (08:52→16:47)
[2022-07-04] MEDS: CALCIUM CARB 250MG /VITAMIN D 1 UDTAB PO SCH (08:52)
[2022-07-04] MEDS: OLANZAPINE 5 MG TABLET PO SCH ×3 (08:53→16:47)
[2022-07-04] MEDS: POLYETHYLENE GLYCOL 3350 17 GM POWD.PACK PO SCH (08:53)
[2022-07-04] MEDS: THIAMINE HCL 100 MG TABLET PO SCH (08:53)
[2022-07-04] MEDS: BLOOD SUGAR DIAGNOSTIC 1 EACH STRIP VI SCH ×4 (08:53→21:51)
[2022-07-04] MEDS: MULTIVIT W/MINERALS 1 TAB TABLET PO SCH (08:53)
[2022-07-04] MEDS: DIVALPROEX SODIUM 125 MG CAP.SPRINK PO SCH ×3 (08:53→22:52)
[2022-07-04] MEDS: GLUCERNA SHAKE 237 ML CAN PO SCH ×2 (08:54→16:47)
[2022-07-04] MEDS: *INSULIN REGULAR(HUMULIN R)HUM 100 UNIT/ML VIAL SQ PRN ×4 (10:14→22:47)
[2022-07-04 16:00] VITALS: BP 119/62
--- NOTE | 2022-07-04 17:42 | NUR ---
RN Closing Note Not able to assess patients status. He is in activity room, talking but not making sense. Patient shows no signs of distress, breathing is unlabored. Oriented patient to time, place and situation. Patient screaming. Will continue to monitor. Medications were administered as prescribed and care provided throughout shift. Will endorse report to night nurse. All safety precautions taken, patient remained safe throughout shift.
[2022-07-04 20:00] VITALS: BP 108/53
[2022-07-04 20:15] VITALS: BP 107/58
[2022-07-04] MEDS: TEMAZEPAM 15 MG CAPSULE PO SCH (21:00)
--- NOTE | 2022-07-04 21:44 | NUR ---
RN NOTE: HELD RESTORIL PATIENT WAS NOTED TO BE SEDATED, SLEEPING IN BED COMFORTABLY. HELD RESTORIL 15 MG PO SCHEDULED PER MD ORDER INSTRUCTIONS TO HOLD RESTORIL FOR SEDATION. WILL CONTINUE TO MONITOR CLOSELY FOR ANY CHANGES.
[2022-07-04] MEDS: INSULIN GLARGINE, 100 UNIT/ML CARTRIDGE SQ SCH (22:00)
--- NOTE | 2022-07-04 22:49 | NUR ---
RN NOTE: HELD LANTUS AND SSI PATIENT'S BLOOD GLUCOSE LEVEL IS 110 MG/DL, PATIENT REFUSED TO HAVE ANY SNACK AT THIS TIME. HELD LANTUS AND SSI TONIGHT TO PREVENT HYPOGLYCEMIA. WILL CONTINUE TO MONITOR THE PATIENT CLOSELY FOR ANY CHANGES.
[2022-07-04] MEDS: FINASTERIDE (5 MG) 5 MG TABLET PO SCH (22:52)
[2022-07-04] MEDS: TAMSULOSIN 0.4 MG CAP.SR.24H PO SCH (22:52)
--- NOTE | 2022-07-05 05:48 | NUR ---
COVID SPECIMEN COLLECTED AND WILL BE SENT TO LAB.
--- NOTE | 2022-07-05 06:54 | NUR ---
COVID SPECIMEN SENT TO LAB.
[2022-07-05 07:02] LABS: BASOPHILS % (AUTO) 0.2 % (0.0-2.0); EOSINOPHILS % (AUTO) 2.3 % (0.0-6.0); HEMATOCRIT 41 % (39-51); HEMOGLOBIN 13.2 g/dL (13.5-17.5); LYMPHOCYTES # (AUTO) 1.9 K/uL (0.8-4.8); LYMPHOCYTES % (AUTO) 17.5 % (20.0-44.0); MEAN CORPUSCULAR HGB CONC 33 g/dl (31.0-36.0); MEAN CORPUSCULAR VOLUME 100 fL (80-96); MONOCYTES # (AUTO) 0.9 K/uL (0.1-1.30); MONOCYTES % (AUTO) 8.4 % (2.0-12.0); NEUTROPHILS # (AUTO) 7.8 K/uL (1.8-8.9); NEUTROPHILS % (AUTO) 71.6 % (43.0-81.0); PLATELET COUNT (AUTO) 247 K/uL (150-450); RED BLOOD CELL COUNT(AUTO) 4.05 MIL/uL (4.5-6.0); WHITE BLOOD COUNT (AUTO) 10.8 K/uL (4.3-11.0)
[2022-07-05] MEDS: BLOOD SUGAR DIAGNOSTIC 1 EACH STRIP VI SCH ×3 (07:49→16:42)
[2022-07-05 08:00] VITALS: BP 115/60
[2022-07-05] MEDS: GLUCERNA SHAKE 237 ML CAN PO SCH ×2 (08:07→16:42)
[2022-07-05] MEDS: INSULIN REGULAR, HUMAN 100 UNIT/ML 3 ML VIAL SQ PRN ×2 (08:10→12:05)
--- NOTE | 2022-07-05 08:14 | NUR ---
FILIPPO Discharge Note: Pt will be discharged to [facility] located at [address] [phone] . Please arrange ambulance at 2PM. It appears pt does not have any family members FILIPPO attempted to contact [employer] ([phone]) who is not answer any calls. During discharge, the pt appears to be in a dysphoric mood and presented with a congruent affect. Pt appears to be alert and oriented x1. Pt denies both suicidal and homicidal ideation as well as auditory and visual hallucinations. Pt will continue to be under the care of psychiatrist, Dr. Ladd, located at [address] [place] [address]; ([phone]). Pt will be under the care of business solutions director, Dr. Elliott, located at [address] [place], [place] [id number]; ([phone]). The choice of vendor form and multidisciplinary exit care form were done, printed, signed, and given to the patient. Addendum: 07/05/22 at 1052 by FILIPPO DAILEY DC canceled due to pt being aggressive and agitated.
[2022-07-05 08:22] LABS: ALBUMIN 2.6 g/dL (3.4-5.0); BILIRUBIN,TOTAL 0.5 mg/dL (0.2-1.0); CALCIUM, SERUM 8.6 mg/dL (8.5-10.1); CREATININE 1.3 mg/dL (0.6-1.3); TOTAL PROTEIN, SERUM 6.3 g/dL (6.4-8.2)
[2022-07-05] MEDS: MULTIVIT W/MINERALS 1 TAB TABLET PO SCH (08:24)
[2022-07-05] MEDS: DOCUSATE SODIUM 100 MG CAPSULE PO SCH ×2 (08:24→16:41)
[2022-07-05] MEDS: POLYETHYLENE GLYCOL 3350 17 GM POWD.PACK PO SCH (08:24)
[2022-07-05] MEDS: OLANZAPINE 5 MG TABLET PO SCH ×3 (08:24→16:41)
[2022-07-05] MEDS: FOLIC ACID 1 MG TABLET PO SCH (08:25)
[2022-07-05] MEDS: CALCIUM CARB 250MG /VITAMIN D 1 UDTAB PO SCH (08:25)
[2022-07-05] MEDS: LEVETIRACETAM (250 MG) 250 MG TABLET PO SCH (08:25)
[2022-07-05] MEDS: risperiDONE 1 MG TABLET PO SCH ×3 (08:25→16:42)
[2022-07-05] MEDS: DIVALPROEX SODIUM 125 MG CAP.SPRINK PO SCH ×2 (08:25→16:41)
[2022-07-05] MEDS: THIAMINE HCL 100 MG TABLET PO SCH (08:25)
--- NOTE | 2022-07-05 08:53 | NUR ---
Dr. Vee gave an order to the primary nurse to d/c hold and d/c to [facility], to continue same meds including prn and to follow up with psych and medical doctors. Addendum: 07/05/22 at 1442 by YANA SHAFER RN cancel the d/c and pt. for d/c to Med-Surg
[2022-07-05] MEDS: LORAZEPAM 0.5 MG TABLET PO PRN (10:32)
--- NOTE | 2022-07-05 10:35 | NUR ---
RN-NOTES PATIENT SCREAMING AND YELLING TALKING NONSENSICAL,REDIRECTED , REORIENTED AND ATIVAN 0.5MG P.O GIVEN PRN ORDER. WILL CONT. MONITORING FOR SAFETY AND BEHAVIOR.
--- NOTE | 2022-07-05 14:11 | NUR ---
Raul Kay ELECTRONIC REPAIR TROUBLESHOOTER in the unit and ordered to transfer pt. to Med-Surg for Dehydration, uncontrolled BS and hypernatremia. Dr. Vee made aware and ordered to D/C pt. to Med-Surg, d/c hold and to continue same meds including prn. Landscape Designer made aware.
--- NOTE | 2022-07-05 14:17 | NUR ---
SW Transfer Note: Pt will be transferred to the medical floor due to multiple medical issues. Dr. Vee will discontinue pt's hold. Pt will be discharged [facility] located at [address] [place] [phone] when stable. Pt has no supportive contact at this time. SW was unable to reach any family members. FILIPPO has been in contact with admin Carmen ([phone]) from [facility].
[2022-07-05 16:00] VITALS: BP 129/87
--- NOTE | 2022-07-05 18:57 | NUR ---
RN-DISCHARGE NOTES PATIENT HAD A DISCHARGE ORDER FROM DR. SANZ ( PSYCHIATRIST), AZUL LESLIE ORDERED TO TRANSFER PATIENT [facility] FOR FURTHER TREATMENT. REPORT WAS GIVEN [facility]. PATIENT DID NOT VERBALIZE SI/HI,DENIES (CONFUSED) AT THE TIME OF DISCHARGE. ALL BELONGINGS WAS GIVEN BACK TO THE PATIENT AND WAS ENDORSED TO THE RECEIVING NURSE. LAUNDRY AIDE WHEELED PATIENT TO [facility] IN STABLE CONDITION A/O X1.
[2022-07-08] MEDS ORDERED: NITR100C15 PO (11:28)
[2022-07-08] MEDS ORDERED: NYST5ORA PO (11:28)
[2022-07-08] MEDS ORDERED: FLUC100T8 PO (11:28)
== END 2022-07-05 17:27 | disposition short-term general hospital (02) | DRG 885 ==
LOC: GPS 23:49
PROVIDERS: ADMIT Psychiatry & Neurology Psychosomatic Medicine; ATTEND Nurse Practitioner Acute Care
DX: F25.0 Schizoaffective disorder, bipolar type (principal); E43 Unspecified severe protein-calorie malnutrition; N17.0 Acute kidney failure with tubular necrosis; E11.65 Type 2 diabetes mellitus with hyperglycemia; G93.41 Metabolic encephalopathy; N39.0 Urinary tract infection, site not specified; E87.20 Acidosis, unspecified; R64 Cachexia; F03.94 Unspecified dementia, unspecified severity, with anxiety; F03.93 Unspecified dementia, unspecified severity, with mood disturbance; E72.20 Disorder of urea cycle metabolism, unspecified; E87.0 Hyperosmolality and hypernatremia; F29 Unspecified psychosis not due to a substance or known physiological condition; F41.9 Anxiety disorder, unspecified; D53.9 Nutritional anemia, unspecified; Z79.4 Long term (current) use of insulin; Z79.84 Long term (current) use of oral hypoglycemic drugs; Z79.899 Other long term (current) drug therapy; B96.89 Other specified bacterial agents as the cause of diseases classified elsewhere; E88.09 Other disorders of plasma-protein metabolism, not elsewhere classified; Z91.81 History of falling; E86.0 Dehydration; Z73.6 Limitation of activities due to disability; R27.8 Other lack of coordination; R53.1 Weakness
CPT/HCPCS: 36415; 80048-TC; 80053-TC; 80061-TC; 80164-TC; 82140-TC; 82962-TC; 83735-TC; 84100-TC; 85025-TC; 85610-TC; 97112-TC; 97116-TC; 97530-TC; J1630; J1644; J1815; J2060; J3490

== ENCOUNTER 2022-07-05 17:44 | Inpatient (IN) | payer MEDICARE, BC ==
[~2022-07-05] VITALS: Ht 167.6 cm; Wt 51.7 kg
[~2022-07-05 17:44] MED LIST changes: -DIVA-78 PO; -QUET25TA PO
--- NOTE | 2022-07-05 18:15 | NUR ---
RN NOTES RECEIVED PATIENT FROM [employer] VIA CHEN-CHAIR ENDORSED BY DONNELL METCALF. PATIENT IS AWAKE AND A/O X1, CONFUSED. ON ROOM AIR TOLERATING WELL. NO SOB NOTED. NOT IN DISTRESS. WITH NO IV ACCESS. SAFETY MEASURES IN PLACED. WILL ENDORSE TO NEXT SHIFT FOR ANDREW.
[2022-07-05 20:00] VITALS: BP 120/75
--- NOTE | 2022-07-05 21:23 | NUR ---
RN NOTE CHARGE NURSE NOTIFIED SHIRLEY AMARO TO PUT IN NEW ORDERS FOR THE PATIENT NEW ADMISSION TO [address]. SHIRLEY AMARO ACKNOWLEDGED THE ENDORSEMENT. WAITING FOR NEW ORDERS FOR THE PATIENT.
[2022-07-06] MEDS ORDERED: ACETAMINOPHEN 325 MG TABLET PO PRN
[2022-07-06] MEDS ORDERED: ONDANSETRON HCL/PF 4 MG/2 ML VIAL IVP PRN
[2022-07-06] MEDS ORDERED: MAGNESIUM HYDROXIDE 30 ML UDC PO PRN
[2022-07-06] MEDS ORDERED: MAG HYDROX/AL HYDROX/SIMETH 30 ML UDC PO PRN
[2022-07-06] MEDS ORDERED: Z GUARD REMEDY 4 OZ OINT TP PRN
--- NOTE | 2022-07-06 00:55 | NUR ---
RN NOTE: MEDICATION REFUSAL PATIENT REFUSED LOVENOX X 3 DESPITE OF RISKS AND BENEFITS EXPLANATIONS. PATIENT GOT EXTREMELY AGITATED, RESTLESS AND CONTINUED TO REFUSE LOVENOX.
[2022-07-06] MEDS: FLUCONAZOLE (100 MG) 100 MG TABLET PO SCH ×2 (00:57→21:48)
[2022-07-06] MEDS: NYSTATIN (PYXIS) 500,000 UNIT/5 ML ORAL.SUSP PO SCH ×4 (00:57→17:22)
[2022-07-06] MEDS ORDERED: DEXTROSE 50%-WATER 50 ML DISP.SYRIN IV PRN (01:00)
[2022-07-06] MEDS: TEMAZEPAM 15 MG CAPSULE PO SCH ×2 (01:26→21:48)
--- NOTE | 2022-07-06 02:55 | NUR ---
RN NOTE: UNCOOPERATIVE BEHAVIOR CERTIFIED REHABILITATION COUNSELOR ATTEMPTED TO INSERT IV CATHETER BUT PATIENT IS UNMANAGEABLE, UNCOOPERATIVE, EASILY AGITATED AND REFUSED IV TREATMENT/HYDRATION FOR NOW. WILL ATTEMPT LATER WHEN PATIENT IS RELAXED. CHARGE NURSE NOTIFIED.
--- NOTE | 2022-07-06 03:55 | NUR ---
RN NOTE JOSIANE WEBSTER NP NOTIFIED THAT PATIENT IS UNCOOPERATIVE, EASILY AGITATED AND AGGRESSIVE AND REFUSED IVF AT THIS TIME. JOSIANE ADVISED TO WAIT TILL PATIENT IS RELAXED/CALM TO START IVF. OFFERED WATER MULTIPLE TIMES DURING THE SHIFT AND PATIENT IS DRINKING PO FLUIDS TOLERATED. WILL CONTINUE TO MONITOR.
--- NOTE | 2022-07-06 05:21 | NUR ---
RN NOTE PATIENT REFUSED MRSA SWAB TO BE COLLECTED X 3, PATIENT IS UNCOOPERATIVE, UNPREDICTABLE BEHAVIOR AND EASILY AGITATED.
--- NOTE | 2022-07-06 06:49 | NUR ---
RN NOTE PATIENT REFUSED AM LABS AND PASSPORT SUPPORT ASSOCIATE WILL RETRY AGAIN LATER. PATIENT ALSO CONTINUED TO REFUSE IVF, KEEPS MOVING HIS EXTREMITIES AT ALL TIMES DURING IV CATH INSERTION. PATIENT FELL ASLEEP WHEN LEFT ALONE. PATIENT IS ASLEEP IN BED AT THIS TIME. WILL ENDORSE TO AM RN REGARDING PATIENT'S UNCOOPERATIVE BEHAVIOR WITH IV CATH INSERTION.
[2022-07-06] MEDS: BLOOD SUGAR DIAGNOSTIC 1 EACH STRIP IN SCH ×4 (06:52→22:44)
--- NOTE | 2022-07-06 07:41 | NUR ---
RN-NOTES RECEIVED PATIENT SLEEPING WITH BREATHING EVEN AND NONLABORED EASILY AROUSED, NO ACUTE DISTRESS NOTED.
[2022-07-06 08:00] VITALS: BP 142/70
[2022-07-06] MEDS: LEVETIRACETAM (250 MG) 250 MG TABLET PO SCH (08:51)
[2022-07-06] MEDS: DIVALPROEX SODIUM 500 MG TABLET.DR PO SCH ×4 (08:51→21:47)
[2022-07-06] MEDS: CALCIUM CARB 250MG /VITAMIN D 1 UDTAB PO SCH (08:51)
[2022-07-06] MEDS: POLYETHYLENE GLYCOL 3350 17 GM POWD.PACK PO SCH (08:51)
[2022-07-06] MEDS: clonazePAM 0.5 MG TABLET PO SCH ×2 (08:52→17:22)
[2022-07-06] MEDS: OLANZAPINE 5 MG TABLET PO SCH ×2 (08:52→17:22)
[2022-07-06] MEDS: METFORMIN 850 MG TABLET PO SCH ×2 (08:52→17:22)
[2022-07-06] MEDS: THIAMINE HCL 100 MG TABLET PO SCH (08:52)
[2022-07-06] MEDS: FOLIC ACID 1 MG TABLET PO SCH (08:52)
[2022-07-06] MEDS ORDERED: NITROFURANTOIN/MONOHYDRATE MACROCRYSTALS 100 MG CAPSULE PO SCH (09:00)
[2022-07-06] MEDS ORDERED: NYSTATIN (PYXIS) 500,000 UNIT/5 ML ORAL.SUSP PO SCH (09:00)
[2022-07-06] MEDS ORDERED: GUANFACINE HCL 1 MG TABLET PO SCH ×4 (09:00→18:00)
[2022-07-06] MEDS: MUPIROCIN OINT 2% 22 GM TUBE NS SCH ×2 (09:26→21:47)
[2022-07-06 09:42] LABS: BASOPHILS % (AUTO) 0.2 % (0.0-2.0); EOSINOPHILS % (AUTO) 2.8 % (0.0-6.0); HEMATOCRIT 40 % (39-51); HEMOGLOBIN 13.3 g/dL (13.5-17.5); LYMPHOCYTES # (AUTO) 1.2 K/uL (0.8-4.8); LYMPHOCYTES % (AUTO) 16.4 % (20.0-44.0); MEAN CORPUSCULAR HGB CONC 33 g/dl (31.0-36.0); MEAN CORPUSCULAR VOLUME 99 fL (80-96); MONOCYTES # (AUTO) 0.6 K/uL (0.1-1.30); MONOCYTES % (AUTO) 8.7 % (2.0-12.0); NEUTROPHILS # (AUTO) 5.2 K/uL (1.8-8.9); NEUTROPHILS % (AUTO) 71.9 % (43.0-81.0); PLATELET COUNT (AUTO) 257 K/uL (150-450); RED BLOOD CELL COUNT(AUTO) 4.06 MIL/uL (4.5-6.0); WHITE BLOOD COUNT (AUTO) 7.3 K/uL (4.3-11.0)
[2022-07-06 09:58] LABS: CALCIUM, SERUM 8.9 mg/dL (8.5-10.1); CREATININE 1.1 mg/dL (0.6-1.3); MAGNESIUM 2.4 mg/dL (1.8-2.4); PHOSPHORUS 3.4 mg/dL (2.5-4.9); TOTAL PROTEIN, SERUM 7.1 g/dL (6.4-8.2)
[2022-07-06 10:05] LABS: THYROID STIMULATING HORMONE 1.649 uIU/mL (0.358-3.74)
[2022-07-06] MEDS: INSULIN REGULAR, HUMAN 100 UNIT/ML 3 ML VIAL SQ PRN ×4 (10:23→22:46)
[2022-07-06 12:13] LABS: BILIRUBIN,TOTAL 0.4 mg/dL (0.2-1.0)
[2022-07-06 16:00] VITALS: BP 117/81
[2022-07-06] MEDS ORDERED: OLANZAPINE 10 MG VIAL IM ONE (18:00)
[2022-07-06] MEDS: IV LR 1000 ML 1,000 ML IV PRN (18:13)
[2022-07-06] MEDS: NITROFURANTOIN/MONOHYDRATE MACROCRYSTALS 100 MG CAPSULE PO SCH ×2 (18:30→21:00)
--- NOTE | 2022-07-06 18:32 | NUR ---
RN-NOTES ZYPREXA 10MG IM HELD DUE TO PATIENT LEEP ,NO AGITATED AT THIS TIME. CHARGE NURSE AWARE. PATIENT ON IV LR 100ML @ 80ML/HR INFUSING WELL.NOTED WITH EPISODE OF SCREAMING AND YELLING THIS SHIFT . COMPLIANT WITH P.O MEDICATIONS. GOOD BELÉN CARE RENDERED. PATIENT ON BOTH HANDS RESTRAIN DUE TO PULLING HIS IV LINE.ALL NEEDS ATTENDED AND ANTICIPATED. WILL ENDORSE TO INCOMING NURSE FOR CONTINUITY OF CARE.
--- NOTE | 2022-07-06 19:45 | NUR ---
MS RN OPENING NOTE PATIENT SLEEPING IN BED, EASILY AWAKENED, PT ALERT/ORIENTED X 1, CONFUSED. PT STABLE ON RA, NO S/S OF DISTRESS OR SOB NOTED, BREATHING EVEN AND UNLABORED. IV ACCESS ON LEFT HAND #22G INTACT AND INFUSING LR @ 80 ML/HR. BILATERAL SOFT WRIST RESTRAINTS IN PLACE. SAFETY MEASURES IN PLACE: CALL LIGHT WITHIN REACH, SIDE RAILS UP X 3, BED LOCKED IN LOWEST POSITION, HOB ELEVATED, BED ALARM ON. WILL CONTINUE TO MONITOR PATIENT
[2022-07-06 20:00] VITALS: BP 114/75
--- NOTE | 2022-07-06 21:45 | NUR ---
MS RN NOTE NOTED DUPLICATE ORDER FOR MACROBID 100 MG PO Q12H. LAST DOSE GIVEN AT 1830. CALLED PHARMACY TO REMOVE DUPLICATE ORDER AND CHANGED NEXT DOSE SCHEDULE TO 6:30 AM SINCE LAST DOSE WAS GIVEN AT 183
[2022-07-06] MEDS: FINASTERIDE (5 MG) 5 MG TABLET PO SCH (21:48)
[2022-07-06] MEDS: TAMSULOSIN 0.4 MG CAP.SR.24H PO SCH (21:48)
[2022-07-06] MEDS: ENOXAPARIN SODIUM 40 MG/0.4 ML DISP.SYRIN SQ SCH ×2 (21:52)
[2022-07-06] MEDS: INSULIN GLARGINE, 100 UNIT/ML CARTRIDGE SQ SCH (22:45)
--- NOTE | 2022-07-06 23:12 | NUR ---
MS RN NOTE CALLED PHARMACY AGAIN REGARDING MACROBID, NEEDS TO BE RESCHEDULED FOR 6:30 AM BUT STILL HASN'T BEEN DONE. PER PHARMACY THEY WILL CHANGE TO 6:30 AM
--- NOTE | 2022-07-07 06:23 | NUR ---
MS RN CLOSING NOTE PATIENT AWAKE IN BED, PT ALERT/ORIENTED X 1, CONFUSED. PT STABLE ON RA, NO S/S OF DISTRESS OR SOB NOTED, BREATHING EVEN AND UNLABORED. IV ACCESS ON LEFT HAND #22G PULLED OUT BY PATIENT, NEW IV INSERTED ON LEFT WRIST #20G INTACT AND INFUSING NS @ 80 ML/HR. BILATERAL SOFT WRIST RESTRAINTS IN PLACE. PATIENT SLEPT WELL THROUGH THE NIGHT, PATIENT WAS CALM AND COOPERATIVE ALL SHIFT, TOOK ALL MEDICATIONS CRUSHED IN PUDDING, FLUIDS PROVIDED THROUGHOUT SHIFT. PATIENT TURNED Q2H, PT NEEDS MET THROUGHOUT SHIFT. SAFETY MEASURES IN PLACE: CALL LIGHT WITHIN REACH, SIDE RAILS UP X 3, BED LOCKED IN LOWEST POSITION, HOB ELEVATED, BED ALARM ON. WILL ENDORSE TO DAYSHIFT NURSE FOR CONTINUITY OF CARE
[2022-07-07] MEDS: BLOOD SUGAR DIAGNOSTIC 1 EACH STRIP IN SCH ×4 (06:31→21:55)
[2022-07-07] MEDS: INSULIN REGULAR, HUMAN 100 UNIT/ML 3 ML VIAL SQ PRN ×4 (06:32→21:57)
[2022-07-07] MEDS: IV LR 1000 ML 1,000 ML IV PRN (06:51)
[2022-07-07 07:36] LABS: BASOPHILS % (AUTO) 0.2 % (0.0-2.0); EOSINOPHILS % (AUTO) 5.1 % (0.0-6.0); HEMATOCRIT 38 % (39-51); HEMOGLOBIN 12.3 g/dL (13.5-17.5); LYMPHOCYTES # (AUTO) 1.3 K/uL (0.8-4.8); MEAN CORPUSCULAR HGB CONC 32 g/dl (31.0-36.0); MEAN CORPUSCULAR VOLUME 99 fL (80-96); MONOCYTES # (AUTO) 0.6 K/uL (0.1-1.30); MONOCYTES % (AUTO) 9.8 % (2.0-12.0); NEUTROPHILS # (AUTO) 3.7 K/uL (1.8-8.9); NEUTROPHILS % (AUTO) 62.9 % (43.0-81.0); PLATELET COUNT (AUTO) 250 K/uL (150-450); RED BLOOD CELL COUNT(AUTO) 3.83 MIL/uL (4.5-6.0); WHITE BLOOD COUNT (AUTO) 5.8 K/uL (4.3-11.0)
--- NOTE | 2022-07-07 07:51 | NUR ---
RN OPENING NOTE PATIENT RECEIVED IN BED, AO X 1-2, CONFUSED, ABLE TO RESPONDS ALL STIMULI. IN NO ACUTE DISTRESS NOTED. RESPIRATORY EVEN AND UNLABORED ON ROOM AIR. SKIN IS WARM TO TOUCH, KEEP CLEAN/DRY. KEPT ELEVATED HOB FOR ENSURE AIRWAY AND ASPIRATION PRECAUTION, ALSO LOWEST POSITION OF THE BED, S/R UP X 2, BED ALARM IS ON AT ALL THE TIMES. ALL SAFETY PRECAUTION APPLIED. CALL LIGHT WITHIN REACH, WILL CONTINUE TO MONITOR.
[2022-07-07 08:00] VITALS: BP 128/93
[2022-07-07] MEDS: POLYETHYLENE GLYCOL 3350 17 GM POWD.PACK PO SCH (08:54)
[2022-07-07] MEDS: NITROFURANTOIN/MONOHYDRATE MACROCRYSTALS 100 MG CAPSULE PO SCH ×2 (08:55→21:36)
[2022-07-07] MEDS: THIAMINE HCL 100 MG TABLET PO SCH (08:55)
[2022-07-07] MEDS: LEVETIRACETAM (250 MG) 250 MG TABLET PO SCH (08:55)
[2022-07-07] MEDS: NYSTATIN (PYXIS) 500,000 UNIT/5 ML ORAL.SUSP PO SCH ×3 (08:55→17:18)
[2022-07-07] MEDS: DIVALPROEX SODIUM 500 MG TABLET.DR PO SCH ×3 (08:55→21:35)
[2022-07-07] MEDS: CALCIUM CARB 250MG /VITAMIN D 1 UDTAB PO SCH (08:55)
[2022-07-07] MEDS: clonazePAM 0.5 MG TABLET PO SCH ×2 (08:55→17:18)
[2022-07-07] MEDS: METFORMIN 850 MG TABLET PO SCH ×2 (08:55→17:18)
[2022-07-07] MEDS: FOLIC ACID 1 MG TABLET PO SCH (08:55)
[2022-07-07] MEDS: MUPIROCIN OINT 2% 22 GM TUBE NS SCH ×2 (08:56→21:35)
[2022-07-07 09:20] LABS: CALCIUM, SERUM 8.4 mg/dL (8.5-10.1); MAGNESIUM 2.1 mg/dL (1.8-2.4); PHOSPHORUS 3.4 mg/dL (2.5-4.9); POTASSIUM 3.5 mmol/L (3.5-5.1)
[2022-07-07] MEDS: GLUCERNA SHAKE 237 ML CAN PO SCH (09:50)
[2022-07-07 16:00] VITALS: BP 116/69
--- NOTE | 2022-07-07 18:00 | NUR ---
RN CLOSING NOTE PATIENT IN BED RESTING. IN NO ACUTE DISTRESS NOTED. RESPIRATORY EVEN AND UNLABORED ON ROOM AIR. SKIN IS WARM TO TOUCH, KEEP CLEAN/DRY, INTACT IV LINE. KEPT ELEVATED HOB FOR ENSURE AIRWAY AND ASPIRATION PRECAUTION. BED IN LOWEST POSITION AND LOCKED. BED ALARM IS ON AT ALL THE TIMES. ALL SAFETY MEASURED IN PLACED. CALL LIGHT WITHIN REACH, WILL ENDORSED TO NEXT SHIFT.
[2022-07-07 20:00] VITALS: BP 116/51
--- NOTE | 2022-07-07 20:15 | NUR ---
MS RN OPENING NOTE PATIENT AWAKE IN BED, PT ALERT/ORIENTED X 1, CONFUSED. PT STABLE ON RA, NO S/S OF DISTRESS OR SOB NOTED, BREATHING EVEN AND UNLABORED. IV ACCESS ON LEFT HAND #22G INTACT AND INFUSING LR @ 80 ML/HR. BILATERAL SOFT WRIST RESTRAINTS IN PLACE. SAFETY MEASURES IN PLACE: CALL LIGHT WITHIN REACH, SIDE RAILS UP X 3, BED LOCKED IN LOWEST POSITION, HOB ELEVATED, BED ALARM ON. WILL CONTINUE TO MONITOR PATIENT
[2022-07-07] MEDS: FLUCONAZOLE (100 MG) 100 MG TABLET PO SCH (21:35)
[2022-07-07] MEDS: TEMAZEPAM 15 MG CAPSULE PO SCH (21:36)
[2022-07-07] MEDS: FINASTERIDE (5 MG) 5 MG TABLET PO SCH (21:36)
[2022-07-07] MEDS: TAMSULOSIN 0.4 MG CAP.SR.24H PO SCH (21:36)
[2022-07-07] MEDS: ENOXAPARIN SODIUM 40 MG/0.4 ML DISP.SYRIN SQ SCH (21:46)
[2022-07-07] MEDS: INSULIN GLARGINE, 100 UNIT/ML CARTRIDGE SQ SCH (21:56)
[2022-07-08 02:45] VITALS: BP 89/53
[2022-07-08 06:24] LABS: BASOPHILS % (AUTO) 0.3 % (0.0-2.0); EOSINOPHILS % (AUTO) 6.7 % (0.0-6.0); HEMATOCRIT 35 % (39-51); HEMOGLOBIN 11.6 g/dL (13.5-17.5); LYMPHOCYTES # (AUTO) 1.7 K/uL (0.8-4.8); LYMPHOCYTES % (AUTO) 32.7 % (20.0-44.0); MEAN CORPUSCULAR HGB CONC 33 g/dl (31.0-36.0); MEAN CORPUSCULAR VOLUME 99 fL (80-96); MONOCYTES # (AUTO) 0.5 K/uL (0.1-1.30); MONOCYTES % (AUTO) 9.3 % (2.0-12.0); NEUTROPHILS # (AUTO) 2.6 K/uL (1.8-8.9); PLATELET COUNT (AUTO) 241 K/uL (150-450); RED BLOOD CELL COUNT(AUTO) 3.58 MIL/uL (4.5-6.0); WHITE BLOOD COUNT (AUTO) 5.1 K/uL (4.3-11.0)
[2022-07-08] MEDS: IV LR 1000 ML 1,000 ML IV PRN (06:39)
--- NOTE | 2022-07-08 06:54 | NUR ---
MS RN CLOSING NOTE PATIENT SLEEPING IN BED, PT ALERT/ORIENTED X 1, CONFUSED. PT STABLE ON RA, NO S/S OF DISTRESS OR SOB NOTED, BREATHING EVEN AND UNLABORED. IV ACCESS ON LEFT HAND #22G INTACT AND INFUSING LR @ 80 ML/HR. BILATERAL SOFT WRIST RESTRAINTS IN PLACE. MEDICATIONS GIVEN ORDERED, PT NEEDS MET THROUGHOUT SHIFT. PATIENT WAS CALM AND COOPERATIVE THIS SHIFT. SAFETY MEASURES IN PLACE: CALL LIGHT WITHIN REACH, SIDE RAILS UP X 3, BED LOCKED IN LOWEST POSITION, HOB ELEVATED, BED ALARM ON. WILL ENDORSE TO DAYSHIFT NURSE FOR CONTINUITY OF CARE
--- NOTE | 2022-07-08 07:15 | NUR ---
MS RN OPENING NOTES: RECEIVED PT AWAKE, ALERT AND ORIENTED X 1 AND CONFUSED. NO SOB OR CARDIAC DISTRESS NOTED, AFEBRILE. NOTED WITH IV ACCESS ON LFA G20 PATENT, INTACT AND INFUSING LR @80ML/HR. NOTED WITH BILATERAL SOFT RESTRAINT, NOTED WITH GOOD CIRCULATION AND PT ABLE TO MOVE HANDS WITHOUT ANY PAIN. SAFETY PRECAUTIONS MAINTAINED: BED LOCKED AND IN LOWEST POSITION, SIDE RAILS UP X 2 CALL LIGHT AND BED SIDE TABLE IN EASY REACH FOR HELP. WILL MONITOR PT ACCORDINGLY.
[2022-07-08] MEDS: BLOOD SUGAR DIAGNOSTIC 1 EACH STRIP IN SCH ×2 (07:18→12:02)
[2022-07-08] MEDS: DIVALPROEX SODIUM 500 MG TABLET.DR PO SCH ×2 (07:27→12:25)
[2022-07-08 07:40] LABS: CALCIUM, SERUM 8.5 mg/dL (8.5-10.1); CARBON DIOXIDE 27 mmol/L (21-32); CHLORIDE 111 mmol/L (98-107); CREATININE 0.9 mg/dL (0.6-1.3); GLUCOSE 140 mg/dL (74-106); MAGNESIUM 1.8 mg/dL (1.8-2.4); PHOSPHORUS 3.5 mg/dL (2.5-4.9); POTASSIUM 3.8 mmol/L (3.5-5.1); SODIUM SERUM 142 mmol/L (136-145); UREA NITROGEN, BLOOD 16 mg/dL (7-18)
[2022-07-08 08:00] VITALS: BP 114/74
[2022-07-08] MEDS: GLUCERNA SHAKE 237 ML CAN PO SCH (09:00)
[2022-07-08] MEDS: clonazePAM 0.5 MG TABLET PO SCH (09:26)
[2022-07-08] MEDS: LEVETIRACETAM (250 MG) 250 MG TABLET PO SCH (09:26)
[2022-07-08] MEDS: NYSTATIN (PYXIS) 500,000 UNIT/5 ML ORAL.SUSP PO SCH ×2 (09:26→12:25)
[2022-07-08] MEDS: POLYETHYLENE GLYCOL 3350 17 GM POWD.PACK PO SCH (09:26)
[2022-07-08] MEDS: THIAMINE HCL 100 MG TABLET PO SCH (09:26)
[2022-07-08] MEDS: NITROFURANTOIN/MONOHYDRATE MACROCRYSTALS 100 MG CAPSULE PO SCH (09:26)
[2022-07-08] MEDS: METFORMIN 850 MG TABLET PO SCH (09:27)
[2022-07-08] MEDS: FOLIC ACID 1 MG TABLET PO SCH (09:27)
[2022-07-08] MEDS: CALCIUM CARB 250MG /VITAMIN D 1 UDTAB PO SCH (09:27)
[2022-07-08] MEDS: MUPIROCIN OINT 2% 22 GM TUBE NS SCH (10:37)
[2022-07-08] MEDS ORDERED: NITR100C15 PO (11:28)
[2022-07-08] MEDS ORDERED: FLUC100T8 PO (11:28)
[2022-07-08] MEDS ORDERED: NYST5ORA PO (11:28)
[2022-07-08] MEDS: INSULIN REGULAR, HUMAN 100 UNIT/ML 3 ML VIAL SQ PRN (12:17)
--- NOTE | 2022-07-08 13:00 | NUR ---
RN NOTES: RECEIVED A CALL FROM OLI Schultz THAT SHE WILL PERSONALLY BLASTING HELPER THE COVID TEST.
--- NOTE | 2022-07-08 14:21 | NUR ---
CHIEF CLOTH FINISHING RANGE OPERATOR NOTES: PATIENT DC TO [facility]. PATIENT ALERT AND ORIENTED X 1 VERY CONFUSED AND NEED FREQUENT REORIENTATION. NO SOB OR CARDIAC DISTRESS NOTED. REMOVED IV ACCESS. IDENTIFICATION BAND LEFT IN PLACE. DISCHARGE INSTRUCTIONS GIVEN TO PARAMEDICS AND VERBALIZED UNDERSTANDING. NO BELONGINGS TAKEN WITH THE PT. REPORT GIVEN TO DONNELL CALVO OF [facility]. PT ACCOMPANIED BY TRANSPORTER VIA GURNEY. PT LEFT THE UNIT STABLE.
== END 2022-07-08 14:00 | DRG 640 ==
LOC: TELE 17:44 → MED 18:11
PROVIDERS: ADMIT Nurse Practitioner Acute Care; ATTEND Nurse Practitioner Acute Care
DX: R62.7 Adult failure to thrive (principal); E43 Unspecified severe protein-calorie malnutrition; G93.40 Encephalopathy, unspecified; B37.0 Candidal stomatitis; N39.0 Urinary tract infection, site not specified; E87.0 Hyperosmolality and hypernatremia; E87.3 Alkalosis; E86.1 Hypovolemia; F29 Unspecified psychosis not due to a substance or known physiological condition; D63.8 Anemia in other chronic diseases classified elsewhere; E11.65 Type 2 diabetes mellitus with hyperglycemia; G31.84 Mild cognitive impairment of uncertain or unknown etiology; N40.0 Benign prostatic hyperplasia without lower urinary tract symptoms; G40.909 Epilepsy, unspecified, not intractable, without status epilepticus; Z79.84 Long term (current) use of oral hypoglycemic drugs; Z79.4 Long term (current) use of insulin; Z79.899 Other long term (current) drug therapy; Z91.199 Patient's noncompliance with other medical treatment and regimen due to unspecified reason; Z53.20 Procedure and treatment not carried out because of patient's decision for unspecified reasons; F25.0 Schizoaffective disorder, bipolar type
CPT/HCPCS: 36415; 80048-TC; 80053-TC; 80061-TC; 82962-TC; 83540-TC; 83735-TC; 84100-TC; 84443-TC; 85025-TC; 93307-TC; 97112-TC; 97116-TC; 97530-TC; G0378; J1650; J1815; J7120